=== PATIENT | male | born 1955 | race Caucasian/White ===

== ENCOUNTER 2019-02-23 14:26 | Outpatient (CLI) | payer MEDICARE, MEDICAID, SELFPAY ==
--- NOTE | 2019-02-23 14:35 | XRR_ITS ---
PROCEDURE INFORMATION: Exam: XR Abdomen, 1 View Exam date and time: 02/23/2019 3:46 PM Age: 63 years old Clinical indication: Condition or disease; Other: Calcium urolithiasis; Prior surgery; Surgery date: 6+ months; Surgery type: Kidney stone, gallbladder TECHNIQUE: Imaging protocol: XR of the abdomen. Views: Frontal supine view of the abdomen. 1 View. COMPARISON: CR XR KUB [id number] 02/23/2018 12:54 PM FINDINGS: Gastrointestinal tract: Normal. No bowel dilation. Status post cholecystectomy Faint densities are present in the projection of the proximal transverse colon which may represent material within the bowel. Bones/joints: Unremarkable. Negative for urinary tract stones
== END 2019-02-23 14:27 | disposition home or self-care (01) ==
PROVIDERS: Family Provider Physician Assistant; PCP Physician Assistant; Visit Provider Urology
DX: Z87.442 Personal history of urinary calculi (principal)
CPT/HCPCS: 74018; 81001

== ENCOUNTER → 2019-04-05 10:40 | Outpatient (BNVA) | payer MEDICARE, MEDICAID, SELFPAY | PROVIDERS: Family Provider Physician Assistant; PCP Physician Assistant; Visit Provider Podiatrist Foot & Ankle Surgery | DX: E11.43 Type 2 diabetes mellitus with diabetic autonomic (poly)neuropathy (principal); M79.672 Pain in left foot; M77.32 Calcaneal spur, left foot; L60.3 Nail dystrophy; Z89.421 Acquired absence of other right toe(s); S92.222D Displaced fracture of lateral cuneiform of left foot, subsequent encounter for fracture with routine healing; X58.XXXD Exposure to other specified factors, subsequent encounter | CPT/HCPCS: 73630; L1902 ==

== ENCOUNTER 2019-04-05 14:28 | Outpatient (CLI) | payer MEDICARE, MEDICAID, SELFPAY | END 2019-04-05 14:29 | disposition home or self-care (01) | LOC: SPT 14:28 | PROVIDERS: Family Provider Physician Assistant; PCP Physician Assistant; Visit Provider Podiatrist Foot & Ankle Surgery | DX: S92.222D Displaced fracture of lateral cuneiform of left foot, subsequent encounter for fracture with routine healing (principal); X58.XXXD Exposure to other specified factors, subsequent encounter | CPT/HCPCS: L1902 ==

== ENCOUNTER → 2019-06-08 12:01 | Outpatient (BNVA) | payer MEDICARE, MEDICAID, SELFPAY | PROVIDERS: Family Provider Physician Assistant; PCP Physician Assistant; Visit Provider Podiatrist Foot & Ankle Surgery | DX: M79.672 Pain in left foot (principal); M79.671 Pain in right foot; Z46.89 Encounter for fitting and adjustment of other specified devices; S92.902G Unspecified fracture of left foot, subsequent encounter for fracture with delayed healing; X58.XXXD Exposure to other specified factors, subsequent encounter | CPT/HCPCS: 73630; L4361 ==

== ENCOUNTER 2019-06-08 12:48 | Outpatient (CLI) | payer MEDICARE, MEDICAID, SELFPAY | END 2019-06-08 12:49 | disposition home or self-care (01) | LOC: SPT 12:49 | PROVIDERS: Family Provider Physician Assistant; PCP Physician Assistant; Visit Provider Podiatrist Foot & Ankle Surgery | DX: Z46.89 Encounter for fitting and adjustment of other specified devices (principal); S92.902G Unspecified fracture of left foot, subsequent encounter for fracture with delayed healing; X58.XXXD Exposure to other specified factors, subsequent encounter | CPT/HCPCS: L4361 ==

== ENCOUNTER 2019-06-09 09:38 | Outpatient (CLI) | payer MEDICARE, MEDICAID, SELFPAY ==
--- NOTE | 2019-06-09 10:00 | IR_ITS ---
WS: [id number] CERVICAL MYELOGRAM HISTORY: Neck pain COMPARISON: Cervical spine radiographs 11/15/2018 FLUOROSCOPY TIME: 1.2 minutes. Procedure, risks and complications were explained to the patient. Risks including bleeding, infection , headaches, allergic reaction and seizures. Consent has been obtained. With the patient in prone position the skin over the lumbar region is cleansed with ChloraPrep and an esthetized with lidocaine. 22-gauge spinal needle is inserted into the thecal sac at the appropriate level determined by fluoroscopy. Omnipaque 300; 12 ml is injected slowly under fluoroscopy with no co mplications. Needle bevel is perpendicular to the longitudinal fibers of the dura. Stylet is reinsert ed prior to removal of the needle. Patient tolerated the procedure well. Patient will proceed to CT f or further evaluation. Uncomplicated injection into the lumbar region. Using gravity the contrast is placed within the cervi jorge spine. Cervical alignment is normal with small endplate osteophytes and disc space narrowing. Mil d disc space narrowing at C5-6 and C6-7. No significant instability. No fractures. IR/[place] cervical [id number] IMPRESSION: 1. Uncomplicated cervical myelogram. 2. Please see CT report to follow. 3. Degenerative spondylitic changes most significant at C5-6 and C6-7. No inst ability.
--- NOTE | 2019-06-09 11:30 | CT_ITS ---
WS: [id number] CT CERVICAL MYELOGRAM HISTORY: Cervical disc disease Technique: All CT scans at [facility] use at least one of these dose optimization techniq ues: automated exposure control; mA and/or kV adjustment per patient size (includes targeted exams wh ere dose is matched to clinical indication); or iterative reconstruction. DLP: 760.56 mGy.cm COMPARISON: 11/15/2018 Good opacification of thecal sac with contrast. Normal cervical alignment. Mild disc space narrowing and desiccation at C5-6 and C6-7 with endplate o steophytes. Osteophytes encroach upon the ventral thecal sac. C1-C2: Normal. C2-C3: Central osteophyte without stenosis. C3-C4: Normal. C4-C5: Mild disc bulging and osteophytes. Small erosion within the LEFT facet joint. C5-C6: Moderate annular disc bulging and osteophytic ridging. Focal posterior osteophyte measures 3 m m and encroaches upon the ventral thecal sac with displacement. Mild central and RIGHT foraminal sten osis. C6-C7: Diffuse osteophytic ridging with mild central and RIGHT foraminal stenosis. Paravertebral soft tissues are normal. Note: Patient was experiencing double vision after the myelogram. After discussing symptoms with Carolina Mireles the patient was taken to the emergency room for evaluation. I discussed patient's symptoms wi th Dr. Pires at the time. Patient's mother has been made aware that he was taken to the emergency room. CT/CT cervical spine w con [id number] IMPRESSION: 1. Moderate degenerative disc disease at C5-6 and C6-7 with osteophytosis. 2. Mild central and RIGHT foraminal stenosis at C5-6 and C6-7 predominantly du e to osteophytes.
[2019-06-09] MEDS: iohexol 300 mg/mL 50 mL Btl INTRATHECA (14:03)
== END 2019-06-09 09:39 | disposition home or self-care (01) ==
LOC: RADWPI 10:45 → RAD 10:47
PROVIDERS: Family Provider Physician Assistant; PCP Physician Assistant; Visit Provider Licensed Practical Nurse
DX: M50.322 Other cervical disc degeneration at C5-C6 level (principal); M48.02 Spinal stenosis, cervical region; M25.78 Osteophyte, vertebrae; H53.2 Diplopia
CPT/HCPCS: 62302; 72040; 72126; 85610; 85730; Q9967

== ENCOUNTER 2019-06-09 12:50 | Emergency (ER) | payer MEDICARE, MEDICAID, SELFPAY ==
[2019-06-09 12:55] VITALS: BP 155/93; PULSE 69; RESP 18; TEMP 36.4; O2SAT 96; BMI 37.1
--- NOTE | 2019-06-09 13:03 | ED_ITS ---
HPI - Eye Problem General: Chief complaint: Eye Problems Stated complaint: DOUBLE VISION POST PROCEDURE Time Seen by Provider: 06/09/19 13:03 History of Present Illness: HPI Narrative: 63 yo male present with complaining of eye problems. Pt had a CT myelogram for chronic neck pain. He has a history of seizures so they had it done today here in the hospital rather than hand imaging center. After the procedure he was complaining of having double vision he was also noted to have elevated blood pressure the double vision is new he had no other associated symptoms he does have known elevated blood pressure but usually does not have this kind of symptoms. He has some chronic shortness of breath which he has had for years has not had any chest pain denies any fever sweats or chills MD chief complaint: vision change Onset (ago): hour(s) Onset description: sudden Duration: improved Location: both eyes Eye Symptoms: other (Double vision) Place: other (at radiology department of the hospital) Mechanism: other (CT myelogram) Severity: moderate Associated symptoms: Denies fever(s), nausea or vomiting Review of Systems Const: Denies: fever, chills, body aches, change in appetite, fatigue or malaise ENMT: Denies: throat pain, ear pain, nasal discharge or nasal congestion Card: Denies: chest pain, edema, shortness of breath on exertion or shortness of breath when lying down Resp: Denies: shortness of breath, productive cough or non-productive cough GI: Denies: abdominal pain, nausea, vomiting, vomiting blood, coffee grounds in vomit, diarrhea, constipation, bloating, blood in stool or black tarry stool : Denies: flank pain, painful urination, urinary frequency or urinary urgency Skin/Breast: Denies: rash or itching [facility] [place] [facility] PFSH: Social History Smoking and tobacco status: never smoked Alcohol intake: never Household members: family Marital status: Single Current occupational status: disabled History of recent travel: No Physical Exam Const: COMMON NORMALS: no apparent distress GENERAL APPEARANCE: cooperative and comfortable ORIENTATION/CONSCIOUSNESS: Yes awake, Yes oriented to person, Yes oriented to place and Yes oriented to time HENMT: COMMON NORMALS: normocephalic, head/scalp atraumatic, hearing grossly normal bilaterally, external ears normal, EAC's normal, TM's normal bilaterally, nasal mucous membranes and turbinates normal, moist oral mucous membranes and oropharynx normal HEAD & SCALP: normocephalic and atraumatic NOSE: nasal mucous membranes and turbinates normal EXTERNAL EAR: Yes external ears normal EXTERNAL AUDITORY CANAL: EAC's normal TYMPANIC MEMBRANE: TM's normal bilaterally Eye: COMMON NORMALS: PERRL, EOMs intact bilaterally, conjunctivae normal and no scleral icterus CONJUNCTIVA: Yes conjunctivae normal PUPIL: Yes PERRL Neck/C-Spine: COMMON NORMALS: full ROM, no lymphadenopathy, supple and no JVD Lymph: LYMPHATIC: no lymphadenopathy noted and no lymphedema noted Resp: COMMON NORMALS: normal respiratory effort, no retractions, no use of accessory muscles and clear to auscultation bilaterally AUSCULTATION: clear to auscultation bilaterally Cardio: COMMON NORMALS: no JVD, regular rate, regular rhythm and no murmurs RATE: regular rate RHYTHM: regular rhythm GI: COMMON NORMALS: soft to palpation and no hepatosplenomegaly AUSCULTATION: Yes normoactive bowel sounds PALPATION: Yes soft, No tender, No guarding and Yes no hepatosplenomegaly Extremity: COMMON NORMALS: normal to inspection, normal capillary refill, no clubbing, cyanosis or edema, no calf tenderness and no pedal edema Neuro: SENSORIUM/ORIENTATION: Yes oriented to person, Yes oriented to place and Yes oriented to time Skin: COMMON NORMALS: no rashes or lesions noted GENERAL SKIN EXAM: no rashes or lesions noted Course Vital Signs: Vital signs: Vital Signs Temperature 97.6 F 06/09/19 12:55 Pulse Rate 56 L 06/09/19 14:50 Respiratory Rate 12 06/09/19 14:50 Blood Pressure 146/89 06/09/19 14:50 Pulse Oximetry 95 06/09/19 14:50 MDM - Eye Problem MDM Narrative: Medical decision making narrative: Reviewed CT findings with Dr. Pal. Symptoms patient initially discussed with Dr. Ramirez of completely resolved by the time he arrived here. Is likely due to irritation from the Omnipaque dye used for the CT myelogram. His blood pressure was significantly elevated will add 10 mg of lisinopril daily and have him follow-up with his primary care doctor within the week return if has problems. Lab Data: Labs: Lab Results 06/09/19 06/09/19 Range/Units 13:35 13:35 WBC 6.7 (4.0-10.0) 10^3/ uL RBC 5.65 H (4.1-5.3) 10^6/u L Hgb 16.9 H (11.7-16.6) g/dL Hct 50.6 (42.0-52.0) % MCV 89.6 (80-94) fL MCH 29.9 (28.0-34.0) pg MCHC 33.4 (30.0-36.0) g/dL RDW 12.7 (12.1-15.1) % Plt Count 204 (130-400) 10^3/c mm MPV 9.5 (7.4-10.4) fL Neut % (Auto) 55.4 % Lymph % (Auto) 31.3 % [place] % (Auto) 8.7 % Eos % (Auto) 3.7 % Baso % (Auto) 0.6 % Neut # (Auto) 3.7 (1.8-7.7) 10^3/u L Lymph # (Auto) 2.1 (0.8-4.8) 10^3/u L [place] # (Auto) 0.6 (0.2-0.9) 10^3/u L Eos # (Auto) 0.3 (0.0-0.8) 10^3/u L Baso # (Auto) 0.0 (0.0-0.1) 10^3/u L Nucleated RBC % (a uto) 0 % Nucleated RBCs # 0.0 /100WBC Sodium 138 (136-145) mmol/L Potassium 4.3 (3.5-5.1) mmol/L Chloride 100 (98-107) mmol/L Carbon Dioxide 27 (22-29) mmol/L Anion Gap 15.3 (5-19) BUN 12 (8-23) mg/dL Creatinine 0.9 (0.7-1.2) mg/dL GFR Calculation 85.8 L (90-130) mL/min Glucose 138 H (65-115) mg/dL Calculated Osmolal ity 284 L (285-295) mOsm/k g Calcium 9.7 (8.5-10.5) mg/dL Total Bilirubin 0.6 (0.15-1.2) mg/dL AST 22 (0-40) U/L ALT 17 (0-41) U/L Alkaline Phosphata se 82 (40-130) IU/L Total Protein 8.3 (6.6-8.7) g/dL Albumin 4.3 (3.5-5.2) g/dL Globulin 4.0 (1.3-4.6) g/dL Discharge Plan Discharge Patient Disposition: Home, Self-Care Clinical Impression: Hypertension, Medication side effect Condition: Stable Prescriptions: New lisinopril 10 mg tablet 10 mg PO DAILY Qty: 20 RF: 0 No Action vitamin B complex [B Complex-Vitamin B12] Tablet 1 tab PO DAILY RF: 0 levetiracetam 750 mg tablet 750 mg PO DAILY RF: 0 metformin 500 mg tablet 500 mg PO DAILY RF: 0 All Day Allergy (cetirizine) 10 mg capsule 10 mg PO DAILY RF: 0 gabapentin 100 mg capsule 100 mg PO TID RF: 0 nystatin-triamcinolone 100,000-0.1 unit/gram-% ointment 1 applic TOPICAL BID Qty: 15 RF: 0 (DME) supinator Qty: 1 RF: 0 (DME) Cam boot Qty: 1 RF: 0 alfuzosin 10 mg tablet extended release 24 hr 10 mg PO DAILY Qty: 30 RF: 12 Discharge Orders: Discharge Order (Routine); Ordered 06/09/19 Ordered By: Aleksey Pires Referrals: Erendira Delong PA [Primary Care Provider] - Discharge Diet: Usual diet Discharge Activity: Increase activity as tolerated Activity Restrictions/Additional Instructions: Follow-up with your primary care provider to recheck your blood pressure within the week Discharge Date/Time: 06/09/19 14:51 Coding Level of Care Code ED Acid Etch Operator for Chg Fwd Exam Comprehensive
[2019-06-09 13:09] VITALS: BP 147/88; PULSE 60; RESP 14; O2SAT 96
--- NOTE | 2019-06-09 13:16 | CT_ITS ---
WS: [id number] CT HEAD TECHNIQUE: Noncontrast CT of the head obtained from the skullbase to the vertex. CLINICAL INFORMATION: dbl vision COMPARISON: None. DLP: 809.[address] scans at [facility] use at least one of these dose optimization techniques: automat ed exposure control; mA and/or kV adjustment per patient size (includes targeted exams where dose is matched to clinical indication); or iterative reconstruction. FINDINGS: CT cervical myelogram from earlier today. Residual contrast within the basilar cisterns and overlying the cerebral hemispheres. No significant mass effect or midline shift. No hydrocephalus. Moderate pa renchymal volume loss. Mild small vessel changes. Paranasal sinuses and mastoid air cells are well ae rated. Notified Aleksey Pires DO at 06/09/2019 2:[address]/CT head wo con* [id number] IMPRESSION: 1. Intracranial contrast from recent cervical myelogram. 2. No significant mass effect or midline shift. 3. No hydrocephalus. 4. Moderate parenchymal volume loss.
[2019-06-09 13:40] LABS: Basophils % 0.6 %; Eosinophils # 0.3 10^3/uL (0.0-0.8); Eosinophils % 3.7 %; Hematocrit 50.6 % (42.0-52.0); Hemoglobin 16.9 g/dL (11.7-16.6); Lymphocytes # 2.1 10^3/uL (0.8-4.8); Lymphocytes % 31.3 %; Mean Corpuscular HGB Conc 33.4 g/dL (30.0-36.0); Mean Corpuscular Hemoglobin 29.9 pg (28.0-34.0); Mean Corpuscular Volume 89.6 fL (80-94); Mean Platelet Volume 9.5 fL (7.4-10.4); Monocytes # 0.6 10^3/uL (0.2-0.9); Monocytes % 8.7 %; Neutrophils # 3.7 10^3/uL (1.8-7.7); Neutrophils % 55.4 %; Nucleated Red Blood Cells % 0 %; Platelet Count 204 10^3/cmm (130-400); Red Blood Count 5.65 10^6/uL (4.1-5.3); Red Cell Distribution Width 12.7 % (12.1-15.1); White Blood Count 6.7 10^3/uL (4.0-10.0)
[2019-06-09 13:57] LABS: Alanine Aminotransferase 17 U/L (0-41); Albumin Level 4.3 g/dL (3.5-5.2); Alkaline Phosphatase 82 IU/L (40-130); Anion Gap 15.3 (5-19); Aspartate Amino Transferase 22 U/L (0-40); Blood Urea Nitrogen 12 mg/dL (8-23); Calcium 9.7 mg/dL (8.5-10.5); Carbon Dioxide 27 mmol/L (22-29); Chloride 100 mmol/L (98-107); Creatinine Clr Calc Pharmacy 97.5435; Glomerular Filtration Rate 85.8 mL/min (90-130); Glucose 138 mg/dL (65-115); Osmolality Calculated 284 mOsm/kg (285-295); Potassium 4.3 mmol/L (3.5-5.1); Sodium 138 mmol/L (136-145); Total Bilirubin 0.6 mg/dL (0.15-1.2); Total Protein 8.3 g/dL (6.6-8.7)
[2019-06-09 14:50] VITALS: BP 146/89; PULSE 56; RESP 12; O2SAT 95
== END 2019-06-09 14:51 | disposition home or self-care (01) ==
PROVIDERS: Emergency Provider Family Medicine; Family Provider Physician Assistant; PCP Physician Assistant
DX: I15.8 Other secondary hypertension (principal); T50.905A Adverse effect of unspecified drugs, medicaments and biological substances, initial encounter
CPT/HCPCS: 12345; 36415; 70450; 80053; 85025; 99281; 99283

== ENCOUNTER → 2019-06-22 10:49 | Outpatient (BNVA) | payer MEDICARE, MEDICAID, SELFPAY | PROVIDERS: Family Provider Physician Assistant; PCP Physician Assistant; Visit Provider Podiatrist Foot & Ankle Surgery | DX: M79.673 Pain in unspecified foot (principal); S92.902G Unspecified fracture of left foot, subsequent encounter for fracture with delayed healing; M77.32 Calcaneal spur, left foot | CPT/HCPCS: 73630 ==

== ENCOUNTER 2019-06-22 13:41 | Outpatient (CLI) | payer MEDICARE, MEDICAID, SELFPAY | END 2019-06-22 13:42 | disposition home or self-care (01) | LOC: SPT 13:43 | PROVIDERS: Family Provider Physician Assistant; PCP Physician Assistant; Visit Provider Podiatrist Foot & Ankle Surgery | DX: Z46.89 Encounter for fitting and adjustment of other specified devices (principal); S92.902G Unspecified fracture of left foot, subsequent encounter for fracture with delayed healing; X58.XXXD Exposure to other specified factors, subsequent encounter; M79.673 Pain in unspecified foot; M77.32 Calcaneal spur, left foot | CPT/HCPCS: 73630; L3100 ==

== ENCOUNTER 2019-07-25 09:44 | Observation (INO) | payer MEDICARE, MEDICAID, SELFPAY ==
[2019-07-22 12:33] VITALS: BMI 37.9
--- NOTE | 2019-07-22 12:49 | ANES.PREANE2 ---
Pre-Anesthetic Assessment Pre-Anesthetic Assessment: Height/Weight: Height 1.68 m Weight 106.594 kg Preop Diagnosis: Intervertebral disc disorder with myelopathy, mid cervical region Proposed Procedure: Operation Date: 07/25/19 07:00 Proposed Procedures p Anterior Cervical Discectomy&Fusion 1Lev C5-C6 95795 M50.020(Not Applicable) - Mulugeta Hu MD Social: Social History: No alcohol and No tobacco Exam: Pre-Anes Outpt Exam: alert, oriented x 3, clear to auscultation bilaterally and regular rate & rhythm Airway: Submandibular: WNL Cervical ROM: Other (very limited) MP: 3 Dentition: Other (very poor dentation) History/ROS: No significant history except as noted Pulmonary: Pulmonary: MAK and Sleep apnea CV/HEM: CV/HEM: Arrythmia and HTN Comments: h/o endocarditis : : UTI Comments: stones Hepatic: Hepatic: None reported GI: GI: None reported Metabolic: Metabolic: DM and Morbid obesity Musc/skel: Musc/skel: Lower Back Pain, OA/DJD and Weakness (all over ) Neuropsych: Neuropsych: Neuropathy (all over) Anesthetic Plan: ASA status: 3 Anesthesia: Anesthesia Evaluation and General Risk of > 500 ml blood loss (7ml/kg in children): No PFSH Anesthesia PFSH: Medical History Calcium urolithiasis Cervical disc disorder with myelopathy of mid-cervical region Cervical stenosis of spine Gross hematuria History of amputation of toe History of kidney stones History of urethral stricture Urinary tract infection, site not specified Surgical History History of cholecystectomy Status post laser lithotripsy of ureteral calculus Status post esdras-rectal abscess repair, follow-up exam Family History Father , 34-[place] CAD (coronary artery disease) Family/Other Chronic kidney disease (CKD) Social History Smoking and tobacco status: never smoked Alcohol intake: never Household members: family Marital status: Single Current occupational status: disabled History of recent travel: No Data Anesthesia Cardiac Studies: No Data to Display
[2019-07-25] VITALS (12 sets, daily range): BP systolic 143–175; BP diastolic 78–93; PULSE 62–88; RESP 16–20; TEMP 35.6–36.7; O2SAT 92–98
[2019-07-25] MEDS: sodium chloride 0.9% 1,000 ML 30 ML IV (06:44)
[2019-07-25 06:45] LABS: Glucose Point of Care 159 mg/dL (70-110)
--- NOTE | 2019-07-25 06:47 | W.PM.OPSUD ---
Surgery/Procedure H&P Update DATE OF PROCEDURE: July 25, 2019 DATE H&P PERFORMED: 07/18/19 H&P UPDATE INFORMATION: I have reviewed H&P completed within last 30 days and H&P to be scanned into chart PREOP DIAGNOSIS: Intervertebral disc disorder with myelopathy, mid cervical region PRIMARY INDICATION FOR PROCEDURE: Pain PLANNED PROCEDURE: Operation Date: 07/25/19 07:00 Proposed Procedures Anterior Cervical Discectomy/Fusion/Fixation, C5-C6 68204 M50.020(Not Applicable) - Mulugeta Hu MD
--- NOTE | 2019-07-25 06:56 | ANES.PREANE2 ---
Pre-Anesthetic Assessment Pre-Anesthetic Assessment: Height/Weight: Height 1.68 m Weight 106.594 kg Temp Pulse Resp BP Pulse Ox 97.6 F 62 18 144/93 95 07/25/19 06:23 07/25/19 06:23 07/25/19 06:23 07/25/19 06:23 07/25/19 06:23 Preop Diagnosis: Intervertebral disc disorder with myelopathy, mid cervical region Proposed Procedure: Operation Date: 07/25/19 07:00 Proposed Procedures p Anterior Cervical Discectomy&Fusion 1Lev C5-C6 80353 M50.020(Not Applicable) - Mulugeta Hu MD Was Beta Marcelina taken within 24 hours: N/A Last intake: Intake Last Liquid Date 07/24/19 Last Liquid Time 22:00 Last Solid Date 07/24/19 Last Solid Time 22:00 Social: Social History: Alcohol and No tobacco Exam: Pre-Anes Outpt Exam: alert, oriented x 3, clear to auscultation bilaterally and regular rate & rhythm (Regular rate with occasional irregularity) Airway: Submandibular: Other (Limited Thyromental Distance; obese neck; pain with full extension) Cervical ROM: Other MP: 3 Additional comments: Profund dental disease throughout; severe decay and periodontal disease Pulmonary: Pulmonary: None reported CV/HEM: CV/HEM: None reported : : None reported Hepatic: Hepatic: None reported GI: GI: None reported Metabolic: Metabolic: DM Musc/skel: Musc/skel: Lower Back Pain and Weakness Neuropsych: Neuropsych: GARCIA and Neuropathy Comments: Cervical radiculopathy with sensory and motor component left>right Anesthetic Plan: ASA status: 3 Anesthesia: General Risk of > 500 ml blood loss (7ml/kg in children): Yes, adequate IV access and fluids planned Meds/Allergies Current Medications: Current Medications Generic Name Dose Route Start Last Admin Trade Name Freq PRN Reason Stop Dose Admin Sodium Chloride 1,000 mls @ 30 ml s/hr 07/25/19 06:30 07/25/19 06:44 Sodium Chloride 0.9% IV 07/26/19 06:29 30 mls/hr .Q24H KARO Administration PFSH Anesthesia PFSH: Medical History Calcium urolithiasis Cervical disc disorder with myelopathy of mid-cervical region Cervical stenosis of spine Gross hematuria History of amputation of toe History of kidney stones History of urethral stricture Urinary tract infection, site not specified Surgical History History of cholecystectomy Status post laser lithotripsy of ureteral calculus Status post esdras-rectal abscess repair, follow-up exam Family History Father , 34-CT CAD (coronary artery disease) Family/Other Chronic kidney disease (CKD) Social History Smoking and tobacco status: never smoked Alcohol intake: never Household members: family Marital status: Single Current occupational status: disabled History of recent travel: No Data Anesthesia Other Labs: Laboratory Results - last 48 hr 07/25/19 06:43 POC Glucose 159 Cardiac Studies: No Data to Display
--- NOTE | 2019-07-25 07:03 | P.OP_ITS ---
Brief Operative Note: Date of procedure: 07/25/19 Pre-op diagnosis: Intervertebral disc disorder with myelopathy, midcervical Procedure Done: C5- C6 ACDFF Surgeon: Mulugeta Hu Estimated blood loss (mL): 50 Complications: None Post-op Plan: PACU, then cano Condition: stable Disposition: PACU Coding Level of Care Code Acute Assembly Line Driver for Ebony Greenwood
--- NOTE | 2019-07-25 07:11 | XR_ITS ---
WS: [id number] INTRAOPERATIVE LATERAL CERVICAL SPINE HISTORY: Cervical surgery. COMPARISON: 06/09/2019 Lateral radiograph obtained in the OR with a metallic marker indicating the anterior C4-5 disc space. Patient is intubated. XR/XR cervical spine 1ort [id number] IMPRESSION: Intraoperative planning marker at anterior cervical soft tissues directed at C4 -5.
[2019-07-25] MEDS: thrombin 5,000 unit SDV 5000 UNIT XX (07:46)
--- NOTE | 2019-07-25 07:54 | XR_ITS ---
WS: [id number] INTRAOPERATIVE LATERAL CERVICAL SPINE HISTORY: SURGERY COMPARISON: Study earlier the same day. Lateral radiograph obtained in the OR with a metallic marker indicating the anterior C5-6 disc space. Soft tissue spacers are now present. Marker is in the disc anteriorly. Patient is intubated. XR/XR cervical spine 1ort [id number] IMPRESSION: Intraoperative planning marker at anterior C5-6 disc level.
--- NOTE | 2019-07-25 08:11 | SUR.OPER ---
Family Notified Of Patient's Status Via Phone.
--- NOTE | 2019-07-25 09:42 | XR_ITS ---
WS: [id number] CERVICAL SPINE 2 VIEWS HISTORY: AP/LAT Post op Fusion COMPARISON: None available. Limited evaluation of the anterior cervical fusion with interbody spacer at C5-6. Mild narrowing of the disc spaces. Postoperative changes in the soft tissues anteriorly. XR/XR cervical spine 3V* [id number] IMPRESSION: Status post anterior cervical fusion with interbody spacer at C5-C6. Limited ev aluation due to patient's body habitus. No apparent complications.
--- NOTE | 2019-07-25 10:12 | ANE.PACU2 ---
Inpatient post-anesthesia follow up: Airway intact: Yes Vital signs: Temperature 97.7 F Pulse Rate 88 Respiratory Rate 16 Blood Pressure 157/92 Pulse Oximetry 92 Oxygen Delivery Me thod Simple Mask Oxygen Flow Rate 8 Fraction of Inspir ed Oxygen Hydration adequate: Yes Nausea and vomiting: No Pain level: 4 Mental status: Baseline Additional Comments: Stable for discharge from PACU
--- NOTE | 2019-07-25 10:37 | PC.NURSE ---
patient arrived on unit
[2019-07-25] MEDS: ketorolac 30 mg/mL INJ IVP (11:05)
[2019-07-25] MEDS: sodium chlor 0.9% + KCl 20 mEq 20 MEQ/1,000 ML BAG 75 MEQ IV (11:05)
--- NOTE | 2019-07-25 11:25 | SUR.PHASEI ---
1030 PT TO FLOOR PER CART PT ALERT TALKATIVE MOVES ALL EXT TO COMMAND, PT UP AND WALKED 2 STEPS TO BED CAREFUL NOT TO TWIST NECK, NECK DRESSING D/I WITH ONE TINY SPOT NOTED ON ADMIT TO PACU, NO SWELLING NOTED SOFT C COLLAR IN PLACE, NURSE DOUGLAS RN AT BEDSIDE PT NECK AND DRESSING SHOWN AT HANDOFF AT BEDSIDE. BP 165/86, HRE 86, RESP 18. SATS ON 3LNC 96%
[2019-07-25] MEDS: levofloxacin-dextrose 5 % 750 MG/150 ML PREMIX 100 MG IV (13:30)
--- NOTE | 2019-07-25 13:40 | P.OP_ITS ---
Operative Report Date of procedure: July 25, 2019 Pre-op Diagnosis: Intervertebral disc disorder with myelopathy, mid cervical region Post-op diagnosis: same (with instability of joint) Procedure Done: C5-C6 anterior cervical discectomy with osteophytectomy. C5-C6 anterior cervical plate-screw fixation. C5-C6 placement of intervertebral prosthetic device. C5-C6 anterior cervical fusion utilizing morselized autograft obtained from the osteophytectomy portions of the procedure. Implants: Synthes Vectra plate/screw system. ACIS ProTi Spacer. Specimens removed/disposition: C5-C6 disc. Pathology: Disc fragments Surgeon: Mulugeta Hu Estimated blood loss (mL): 50 IV fluids (mL): 1,000 Complications: None. Condition: stable Disposition: PACU Brief History: The patient is a 63-year-old male with symptomatic, radiographically confirmed cervical disc/joint disease and associated neural impingement. Imaging studies demonstrated dominant abnormalities at C5-C6, with asymmetry toward the right. Conservative treatment measures had not provided adequate lasting symptom relief. After review of the diagnostic and treatment options with the risks/potential benefits/rationale for each, the patient requested to proceed with surgical decompression/fusion/fixation at the C5-C6 le osvaldo. Procedure: After routine preoperative evaluation and informed consent were obtained, the patient was taken to the Operating Room and positioned supine on the operating table. He was placed under general endotracheal anesthesia by Anesthesia personnel. He was fit in the [place]Wells tongs for the application of in-line cervical traction. The anterolateral neck on the left was prepared with hair clippers, and a proposed transverse skin incision was marked with a sterile skin marker. Regional anatomy and intraoperative radiography were utilized for localization purposes. The area was scrubbed with Betadine and prepped with DuraPrep. Sterile towels and drapes were applied, and an [place] surgical barrier was placed. The proposed incision site was infiltrated with 1% Xylocaine with Epinephrine. A skin incision was made and carried down into the subcutaneous tissues. The platysma was identified and divided in the direction of its fibers. A plane was dissected just medial to the carotid sheath and lateral to the midline esophagus and trachea. The prevertebral soft tissues were bluntly dissected free of the anterior margin of the cervical spine. Longus coli muscles were freed from their medial attachments, and deep self-retaining retractors were placed. Intraoperative radiography verified the desired surgical level. The C5-C6 interspace was then incised with a #11 blade. Discectomy was accomplished utilizing various curettes and pituitary rongeurs. Anterior marginal osteophytes were resected with Lempert and Kerrison rongeurs. Cartilaginous endplates were stripped free with curettes. Posterior marginal osteophytes were resected with the thin-foot plate Kerrison rongeurs. The medial aspects of the neural foramina were enlarged in a similar manner. Posterior longitudinal ligament was divided and resected as necessary to further the decompression. Prominent marginal osteophytes were noted on the right > left. Osteophyte resection was pursued utilizing the Kerrison rongeurs and the Midas Alessio high-speed drill with jonny tool. At the completion of the decompression, no residual central canal or neural foraminal impingement was identified upon probing with the right angle nerve hook. The drill and sized rasps were utilized for endplate preparation. The disc space was sized. A 9mm ACIS ProTi lordotic/medium Spacer was chosen. The Spacer was packed with morselized autograft obtained from the osteophytectomy portions of the procedure. The Spacer was placed within the C5- C6 interspace while in-line cervical traction was applied via the Soto-Wells tongs. Spacer placement was facilitated by use of the mallet and impaction tools. Once the Spacer was in good position, a Synthes Vectra plate of the desired size was chosen. The plate was secured to the C5 and C6 vertebral bodies with bilateral 4 mm x 14 mm self-drilling screws. Final screw tightening was performed, and the screws were noted to engage the locking mechanisms within the plate at each site. The construct was inspected and found to be in good position and secure. The wound was copiously irrigated with sterile saline and antibiotic irrigation. Hemostasis was ensured with the bipolar electrocautery. Wound closure was performed in multiple layers with 2-0 Vicryl Plus simple interrupted closure of the platysma and deep dermis as separate layers. Final skin closure was performed with 4-0 Vicryl Plus in a running subcuticular pattern. Steri- Strips were applied, and a sterile dressing was placed. The patient was released from the Soto-Wells tongs and fit in a [place] collar. He was extubated without incident. He was transferred onto the Recovery Room cart in the supine position. The patient tolerated the procedure well. All sponge, needle, and instrument counts were correct at the completion of the procedure.
--- NOTE | 2019-07-25 14:35 | PC.NURSE ---
patient given discharge instructions and verbalized understanding. patient stated he has less chip washer in left arm. health science writer notified Dr Hu of chip washer concern. waiting advisory application developer back from Dr Hu before discharge.
--- NOTE | 2019-07-25 14:47 | PC.NURSE ---
vd call back from Dr Hu's nurse. Egg Grader explained that patient said he couldn't pickup a carton of milk with right hand but typewriter tester and charge nurse seen patient curing pickling packer a glass of water with right hand. Dr Hu ok with patient being discharge home today. Egg Grader let patient know. and patient requested typewriter tester call his sister for ride home. typewriter tester called patient's sister.
--- NOTE | 2019-07-25 15:05 | PC.NURSE ---
Levaquin administered at 1330, bag didn't scan and write was not aware. After administration of Levaquin comic writer discontinued IV.
[2019-07-25] MEDS: gabapentin 100 mg Capsule PO (15:07)
--- NOTE | 2019-07-25 15:45 | P.DS_ITS ---
Discharge Providers Date of Admission: 07/25/19 09:44 Date of Discharge: July 25, 2019 Attending Provider at Admission: Mulugeta Hu MD Attending Provider at Discharge: Mulugeta Hu MD Primary Care Provider: Erendira Delong Diagnoses at Discharge Discharge Diagnosis (1) Cervical disc disorder with myelopathy of mid-cervical region: Status: Chronic (2) Instability of joint: Status: Acute (3) Status post cervical spinal fusion: Status: Acute Reason for Visit Reason for Visit: cervical disc disorder Brief History: The patient is a 63-year-old male with symptomatic, radiographically confirmed cervical disc/joint disease and associated neural impingement. Imaging studies demonstrated dominant abnormalities at C5-C6, with asymmetry toward the right. Conservative treatment measures had not provided adequate lasting symptom relief. After review of the diagnostic and treatment options with the risks/potential benefits/rationale for each, the patient requested to proceed with surgical decompression/fusion/fixation at the C5-C6 level. Hospital Course Hospital Course: The patient underwent a C5-C6 ACDFF on 07/25/2019. He tolerated the procedure well. He completed preoperative and postoperative intravenous antibiotic doses, and the physical therapy postoperative spine protocol. He was ambulatory, voiding, and tolerating a diabetic diet prior to discharge home on the afternoon of the date of surgery. Physical Exam Const: COMMON NORMALS: no acute distress GENERAL APPEARANCE: cooperative and comfortable Neck/C-Spine: COMMON NORMALS: supple GENERAL: Yes trachea midline and No anterior neck swelling Resp: COMMON NORMALS: normal respiratory effort EFFORT & INSPECTION: Yes able to speak in complete sentences and No tachypneic Extremity: COMMON NORMALS: no clubbing, cyanosis or edema Neuro: COMMON NORMALS: moves all extremities SPEECH: speech normal Psych: COMMON NORMALS: mental status grossly normal and speech normal APPEARANCE: Yes grossly normal ATTITUDE: Yes calm and Yes engaged ACTIVITY/MOTOR BEHAVIOR: Yes appropriate eye contact SPEECH: Yes normal speech MOOD & AFFECT: Yes euthymic mood Skin: WOUNDS: Yes surgical site (Left anterolateral neck surgical site dressing clean/dry/intact.) Discharge Data Data Completed and Pending: Completed Studies During Hospitalization Category Date Time Status XR cervical spine 1 view portable [ XR cervical spine Exams 07/25/19 07:54 Completed 1Vport [id number]] Rou los XR cervical spine 1Vport 23901 Rout ine Exams 07/25/19 07:11 Completed XR cervical spine 3V* [id number] Routine Exams 07/25/19 09:42 Completed Pathology: Surgic al [PTH] Routine Pth 07/25/19 09:58 Completed Imaging^: Other Xray: Radiologist's impression: Status post anterior cervical fusion with interbody spacer at C5-C6. Limited evaluation due to patient's body habitus. No apparent complications. Procedures Performed: C5-C6 anterior cervical discectomy/fusion/fixation (Synthes Vectra plate-screw fixation system). Intravenous antibiotics. Physical therapy. Vitals: Last Vital Signs Temp 97.5 F L 07/25/19 16:00 Pulse 62 07/25/19 16:00 Resp 18 07/25/19 16:00 BP 150/80 07/25/19 16:00 Pulse Ox 98 07/25/19 16:00 Discharge Plan Discharge Patient Disposition: Home, Self-Care Condition: Stable Prescriptions: [place] 7.5-325 mg tablet 1 tab PO Q4H MDD 5 tabs PRN (Reason: pain) Qty: 30 RF: 0 Continued vitamin B complex [B Complex-Vitamin B12] Tablet 1 tab PO DAILY RF: 0 levetiracetam 750 mg tablet 750 mg PO DAILY RF: 0 metformin 500 mg tablet 500 mg PO DAILY RF: 0 All Day Allergy (cetirizine) 10 mg capsule 10 mg PO DAILY RF: 0 gabapentin 100 mg capsule 100 mg PO TID RF: 0 (DME) supinator Qty: 1 RF: 0 (DME) TOE ALIGNMENT SPLINT Qty: 1 RF: 0 (DME) Cam boot RF: 0 Discharge Orders: Discharge Order (Routine); Ordered 07/25/19 Ordered By: Mulugeta Hu Referrals: Mulugeta Hu MD [Physician] - 08/08/19 10:00 am (AP/lateral c-spine x-rays prior to visit.) Discharge Diet: Diabetic Discharge Activity: Limit activity as instructed and As per PT/OT instructions Patient Instructions: Hydrocodone/Acetaminophen (By mouth), Anterior Cervical Discectomy (DC), Surgical Site Infections (GEN) Activity Restrictions/Additional Instructions: Activity -Cervical fusion: Wear cervical collar 24 hours a day. Change as necessary for showering, shaving, or if it becomes soiled. -No lifting or reaching overhead. - No driving until office followup visit - No lifting/pushing/pulling over 10 pounds - Avoid twisting or bending - Walking is encouraged - Home exercise per physical therapist - You may engage in sexual intercourse at any time as long as it is comfortable for you - Check with your doctor before returning to work. Notify your doctor if you develop: - temperature of 101.5 degrees F. or higher - redness or swelling of the incision - Foul drainage - increasing pain - increasing numbness or tingling in the arms or legs - New or increasing problems with vision, balance, memory, speaking, nausea or vomiting Hygiene: - Showering is okay - No tub baths or soaking Other: Remove outer bandage 3 days after surgery. If you have paper strips, leave in place until they fall off on their own. If you have stitches, keep your incision dry until the stitches are removed. Your doctor's office is available to answer any questions from 7 AM to 5:00 PM, Thursday through at [phone]. After hours, go to the emergency room at [facility] or call 911 for assistance. Discharge Date/Time: 07/25/19 16:01 Discharge Attestations Time Spent in Discharge Care*: other (postop global) Quality Metrics Clinical Quality Measures During this hospital stay, did patient experience: None Coding Level of Care Code Acute [employer] Counter Associate for Ebony Greenwood Diagnoses Cervical disc disorder with myelopathy of mid-cervical region M50.020 Instability of joint M25.30 Status post cervical spinal fusion Z98.1 Comment Postop global
== END 2019-07-25 16:01 | disposition home or self-care (01) ==
LOC: MEDSURG 09:45
PROVIDERS: Admitting Provider Specialist; PCP Physician Assistant; Visit Provider Specialist
PROC: 0RB30ZZ Excision of Cervical Vertebral Disc, Open Approach (ICD-10-PCS; CPT 22551; principal; 2019-07-25 07:00)
DX: M50.022 Cervical disc disorder at C5-C6 level with myelopathy (principal); M25.30 Other instability, unspecified joint; I10 Essential (primary) hypertension; E66.01 Morbid (severe) obesity due to excess calories; Z68.37 Body mass index [BMI] 37.0-37.9, adult; E11.40 Type 2 diabetes mellitus with diabetic neuropathy, unspecified
CPT/HCPCS: 22551; 22853; 12345; 36416; 72020; 72040; 82962; 88304; 96375; 97161; 97760; C1713; G0378; J1100; J1885; J1956; J2001; J2405; J2704; J2710; J3010; J3370; J3490; J7030; J7050; L0172; L0174

== ENCOUNTER 2019-08-08 11:16 | Outpatient (CLI) | payer MEDICARE, MEDICAID, SELFPAY ==
--- NOTE | 2019-08-08 11:22 | XRR_ITS ---
PROCEDURE INFORMATION: Exam: XR Cervical Spine, 2 or 3 Views Exam date and time: 08/08/2019 11:35 AM Age: 63 years old Clinical indication: Condition or disease; Cervical region; Prior surgery; Surgery date: <1 month; Surgery type: Cervical spinal fusion 10 days ago; Additional info: S/P cervicla spinal fusion TECHNIQUE: Imaging protocol: XR of the cervical spine, 2 or 3 views. COMPARISON: No relevant prior studies available. FINDINGS: Vertebrae: Ventral fixation plate and screws noted at C5 and C6, with intervertebral spacer material. C7 is not well visualized. There is straightening of the normal cervical lordosis. There is no fracture or listhesis. Soft tissues: There is prevertebral soft tissue swelling at the level of the fusion hardware. There is a small focus of soft tissue air. XR/XR cervical spine 3V* [id number] IMPRESSION: Postoperative appearance reflecting fusion at C5 and C6. Persistent prevertebral soft tissue swelling. Continued follow-up is recommended as indicated.
== END 2019-08-08 11:17 | disposition home or self-care (01) ==
LOC: RAD 11:20
PROVIDERS: PCP Physician Assistant; Visit Provider Licensed Practical Nurse
DX: Z98.1 Arthrodesis status (principal); M43.22 Fusion of spine, cervical region
CPT/HCPCS: 72040

== ENCOUNTER 2019-08-25 07:09 | Outpatient (CLI) | payer MEDICARE, MEDICAID, SELFPAY ==
--- NOTE | 2019-08-25 07:30 | XRR_ITS ---
PROCEDURE INFORMATION: Exam: XR Abdomen, 1 View Exam date and time: 08/25/2019 7:25 AM Age: 63 years old Clinical indication: Condition or disease; Kidney or ureter condition; Calculus (stone) in kidney; Patient HX: Cannot urinate; . HX of kidney stone TECHNIQUE: Imaging protocol: XR of the abdomen. Views: Frontal supine view of the abdomen. 1 View. COMPARISON: CR XR KUB [id number] 02/23/2019 3:28 PM FINDINGS: Gastrointestinal tract: Copious stool, in a pattern of constipation. Mild small bowel dilatation. Organs: Obscuration of the renal fossa by bowel gas and stool. Intraperitoneal space: Surgical clips in the right upper quadrant. Vasculature: Subcentimeter pelvic calcifications, the majority of which are believed to be vascular in etiology. If urolithiasis is of clinical concern, CT may be of benefit for further evaluation. Bones/joints: Degenerative change . XR/XR KUB [id number] IMPRESSION: Copious stool, in a pattern of constipation.
== END 2019-08-25 07:10 | disposition home or self-care (01) ==
PROVIDERS: PCP Physician Assistant; Visit Provider Urology
DX: N20.0 Calculus of kidney (principal); K59.00 Constipation, unspecified
CPT/HCPCS: 74018; 80053; 81001

== ENCOUNTER 2019-09-06 11:03 | Outpatient (CLI) | payer MEDICARE, MEDICAID, SELFPAY ==
--- NOTE | 2019-09-06 11:09 | XR_ITS ---
WS: [id number] CERVICAL SPINE TECHNIQUE: 3 views of the cervical spine CLINICAL INFORMATION: s/p cervical spinal fusion FINDINGS: Straightening of the normal cervical lordosis. Anterior interbody cervical fusion C5-C6 unchanged. Mo derate spondylitic changes. XR/XR cervical spine 3V* [id number] IMPRESSION: Unremarkable ACDF with improved prevertebral soft tissue edema
== END 2019-09-06 11:04 | disposition home or self-care (01) ==
PROVIDERS: PCP Physician Assistant; Visit Provider Specialist
DX: Z98.1 Arthrodesis status (principal); R60.9 Edema, unspecified
CPT/HCPCS: 72040

== ENCOUNTER 2019-09-20 15:48 | Outpatient (CLI) | payer MEDICARE, MEDICAID, SELFPAY ==
--- NOTE | 2019-09-20 15:00 | CT_ITS ---
WS: [id number] CT CERVICAL SPINE TECHNIQUE: Noncontrast CT of the cervical spine with coronal and sagittal reformatted images. CLINICAL INFORMATION: s/p cervical spinal fusion COMPARISON: CT June 09, 2019 and DLP: 1728.[address] scans at [facility] use at least one of these dose optimization techniques: automat ed exposure control; mA and/or kV adjustment per patient size (includes targeted exams where dose is matched to clinical indication); or iterative reconstruction. FINDINGS: Straightening of the normal cervical lordosis. Mild cervical curve. Anterior cervical fusion C5-C6 wi th interbody fusion graft. No evidence of hardware loosening. Hardware is new from previous. C2-C3: Tiny central protrusion. Spinal canal and foramen are patent. Mild facet arthropathy. C3-C4: Tiny central protrusion. Mild facet arthropathy. Spinal canal and foramen are patent. C4-C5: Disc osteophyte complex with endplate ridging. Mild central canal stenosis. Mild facet arthrop athy. Mild right foraminal narrowing. Anterior cervical fusion. C5-C6: Moderate central canal stenosis. Moderate to severe right and mild left bony foraminal narrowi ng. C6-7: Disc osteophytic ridging. Moderate to severe right and mild left bony foraminal narrowing. Spin al canal is patent. C7-T1: Mild left and no significant right foraminal narrowing. Spinal canal is patent. Visualized posterior nasopharynx: Normal. Prevertebral soft tissues: Normal. CT/CT cervical spin wo con* [id number] IMPRESSION: 1. Postoperative changes anterior interbody cervical fusion C5-C6. Hardware ap pears in good position. Hardware is new from previous. 2. Mild central canal stenosis C3-C4 C4-C5 and C5-C6. 3. Moderate to severe bony foraminal narrowing worse at right C5-C6 and right C6-C7.
== END 2019-09-20 15:49 | disposition home or self-care (01) ==
LOC: RADWPI 15:53
PROVIDERS: PCP Physician Assistant; Visit Provider Specialist
DX: Z98.1 Arthrodesis status (principal); M43.22 Fusion of spine, cervical region; M48.02 Spinal stenosis, cervical region; M47.892 Other spondylosis, cervical region
CPT/HCPCS: 72125

== ENCOUNTER → 2019-11-07 15:27 | Outpatient (BNVA) | payer MEDICARE, MEDICAID, SELFPAY | PROVIDERS: PCP Physician Assistant; Visit Provider Specialist | DX: G40.109 Localization-related (focal) (partial) symptomatic epilepsy and epileptic syndromes with simple partial seizures, not intractable, without status epilepticus (principal); H91.90 Unspecified hearing loss, unspecified ear; F45.0 Somatization disorder; Z98.1 Arthrodesis status | CPT/HCPCS: 99214 ==

== ENCOUNTER 2020-01-02 10:40 | Outpatient (CLI) | payer MEDICARE, MEDICAID, SELFPAY ==
--- NOTE | 2020-01-02 10:50 | MR_ITS ---
WS: [id number] MRI BRAIN WITH HIGH-RESOLUTION IMAGING THROUGH THE INTERNAL AUDITORY CANALS WITHOUT AND WITH CONTRAST HISTORY: UNSPECIFIED SENSORINEURAL HEARING LOSS COMPARISON: MRI 02/24/2018 TECHNIQUE: Multiplanar, multisequence imaging is performed through the brain. Additional 3 mm imaging performed in multiple planes through the internal auditory canal. Postcontrast imaging with 17 ml's of Prohance. No acute intracranial hemorrhage, midline shift, edema or mass effect. Mild to moderate bilateral symmetric atrophy. There are a few scattered areas of T2 and FLAIR signal hyperintensities from chronic ischemic disease. Prior LEFT occipital infarct. Ventricles and extra-axial spaces are normal. No inferior displacement of cerebellar tonsils. Clivus and pituitary gland are normal. Internal and external auditory canals: Unremarkable. No abnormality is identified. Quality of this ex amination is somewhat limited due to the body habitus. Cranial nerves VII and VIII complexes: Unremarkable. No enhancement or mass. Cerebellopontine angles: Normal. Paranasal sinuses: Small mucous retention cyst in the floor the RIGHT maxillary sinus. Mastoid air cells: Normal. Calvarium and scalp: Normal. Visualized [place] of [place] and dural venous sinuses demonstrate no abnormality. MR/MR iac's wo/w con* [id number] IMPRESSION: 1. No abnormality noted at the cerebellopontine angles or along the internal a uditory canals. 2. Mild to moderate bilateral symmetric atrophy and prior LEFT occipital infar ct. 3. No enhancing masses.
== END 2020-01-02 10:41 | disposition home or self-care (01) ==
LOC: RADWPI 10:46
PROVIDERS: PCP Physician Assistant; Visit Provider Specialist
DX: H90.5 Unspecified sensorineural hearing loss (principal); G31.9 Degenerative disease of nervous system, unspecified
CPT/HCPCS: 70553; A9579

== ENCOUNTER → 2020-05-09 14:26 | Outpatient (BNVA) | payer MEDICARE, MEDICAID, SELFPAY | PROVIDERS: PCP Physician Assistant; Visit Provider Specialist | DX: G40.109 Localization-related (focal) (partial) symptomatic epilepsy and epileptic syndromes with simple partial seizures, not intractable, without status epilepticus (principal) | CPT/HCPCS: 99215 ==

== ENCOUNTER → 2020-05-21 09:07 | Outpatient (BNVA) | payer MEDICARE, MEDICAID, SELFPAY | PROVIDERS: PCP Physician Assistant; Visit Provider Urology | DX: N20.9 Urinary calculus, unspecified (principal); N40.1 Benign prostatic hyperplasia with lower urinary tract symptoms; K92.1 Melena; F45.0 Somatization disorder; Z87.442 Personal history of urinary calculi | CPT/HCPCS: 81003 ==

== ENCOUNTER → 2020-06-07 13:56 | Outpatient (BNVA) | payer MEDICARE, MEDICAID, SELFPAY | PROVIDERS: PCP Physician Assistant; Visit Provider Surgery | DX: K92.1 Melena (principal); Z20.822 Contact with and (suspected) exposure to COVID-19 | CPT/HCPCS: 87635 ==

== ENCOUNTER → 2020-06-12 07:45 | Day surgery (SDC) | payer MEDICARE, MEDICAID, SELFPAY ==
--- NOTE | 2020-04-17 12:00 | XRR_ITS ---
PROCEDURE INFORMATION: Exam: XR Abdomen Exam date and time: 04/17/2020 12:34 PM Age: 64 years old Clinical indication: Condition or disease; Kidney or ureter condition; Calculus (stone) in kidney; Additional info: HX of kidney stones TECHNIQUE: Imaging protocol: XR of the abdomen. Views: Frontal supine view of the abdomen. 1 View. COMPARISON: CR XR KUB [id number] 08/25/2019 7:18 AM FINDINGS: Gastrointestinal tract: Normal. No bowel dilation. Surgical clips seen in the right upper quadrant corresponding to cholecystectomy. Bones/joints: Negative for acute abnormality The examination is negative for visible radiodense urinary tract stones. The kidneys are partially obscured by colon contents XR/XR KUB [id number] IMPRESSION: 1. No acute GI abnormality. 2. Status post cholecystectomy. 3. Negative for urinary tract stones
== END ==
LOC: RAD 04-17 12:33 → OPS 07:54
PROVIDERS: PCP Physician Assistant; Visit Provider Urology
DX: K92.1 Melena (principal); N40.1 Benign prostatic hyperplasia with lower urinary tract symptoms; N13.8 Other obstructive and reflux uropathy; K57.30 Diverticulosis of large intestine without perforation or abscess without bleeding; K64.8 Other hemorrhoids
CPT/HCPCS: 74018; 81003; 87077; 87086; 87184

== ENCOUNTER 2020-06-12 08:22 | Day surgery (SDC) | payer MEDICARE, MEDICAID, SELFPAY ==
[2020-06-11 09:09] VITALS: BMI 34.9
--- NOTE | 2020-06-12 07:56 | P.ANESASSM_ITS ---
Pre-Anesthetic Assessment Pre-Anesthetic Assessment: Height/Weight: Height 1.7 m Weight 101.151 kg Preop Diagnosis: hemathochezia Proposed Procedure: Operation Date: 06/12/20 09:00 Proposed Procedures p Colonoscopy 60621 K92.1(Not Applicable) - Garrick Mrogan MD Familial anesthetic complications: None Last intake: none Social: Social History: No alcohol and No tobacco Exam: Pre-Anes Outpt Exam: alert, oriented x 3, clear to auscultation bilaterally and regular rate & rhythm Airway: Cervical ROM: WNL (limited extension and L rotation, post surgery) MP: 4 Additional comments: Poor dentition, multiple broken and loose disco lored CV/HEM: Comments: hx endocarditis Metabolic: Metabolic: DM and Morbid obesity Musc/skel: Comments: Diffuse msk pain across midsection after his neck surgery in february with dr singh last year, no feeling infeet Neuropsych: Neuropsych: Seizure (last one three years ago) PFSH Anesthesia PFSH: Medical History BPH loc w urin obs/LUTS Calcium urolithiasis Cervical disc disorder with myelopathy of mid-cervical region Colon polyps History of urethral stricture Urinary tract infection, site not specified Urolithiasis Surgical History History of amputation of toe History of cholecystectomy Status post cervical spinal fusion 07/25/2019 Dr. Mele Singh C5-C6 ACDFF Status post colonoscopy Status post laser lithotripsy of ureteral calculus Status post esdras-rectal abscess repair, follow-up exam Family History Father , 34-[place] CAD (coronary artery disease) Family/Other Chronic kidney disease (CKD) Social History Smoking and tobacco status: never smoked Alcohol intake: never Household members: family Marital status: Single Current occupational status: disabled History of recent travel: No Data Anesthesia Cardiac Studies: No Data to Display
[2020-06-12 08:34] VITALS: BP 160/83; PULSE 71; RESP 16; TEMP 37.1; O2SAT 94
[2020-06-12] MEDS: sodium chloride 0.9% 1,000 ML 30 ML IV (08:40)
[2020-06-12 08:46] LABS: Glucose Point of Care 168 mg/dL (70-110)
--- NOTE | 2020-06-12 08:52 | W.PM.OPSUD ---
Surgery/Procedure H&P Update DATE OF PROCEDURE: June 12, 2020 DATE H&P PERFORMED: 05/29/20 H&P UPDATE INFORMATION: I have reviewed H&P completed within last 30 days, I have examined patient prior to procedure and No changes to prior documentation PREOP DIAGNOSIS: diagnostic PLANNED PROCEDURE: Operation Date: 06/12/20 09:00 Proposed Procedures p Colonoscopy 99045 K92.1(Not Applicable) - Garrick Morgan MD
--- NOTE | 2020-06-12 09:36 | ANE.PACU2 ---
Inpatient post-anesthesia follow up: Airway intact: Yes Vital signs: Temperature 98.7 F Pulse Rate 71 Respiratory Rate 16 Blood Pressure 160/83 Pulse Oximetry 94 Oxygen Delivery Me thod Room Air Oxygen Flow Rate Fraction of Inspir ed Oxygen Hydration adequate: Yes Nausea and vomiting: No Pain level: 1 Mental status: Baseline
[2020-06-12 09:41] VITALS: BP 121/67; PULSE 75; RESP 18; TEMP 36.3; O2SAT 95
--- NOTE | 2020-06-12 10:41 | PC.NURSE ---
PT'S SISTER CALLED TWICE TO COME TO THE GI DEPARTMENT FOR DISCHARGE INSTRUCTIONS, AND SHE DECLINED BOTH TIMES. STATED SHE WOULD WAIT IN THE CAR. VERBAL AND WRITTEN INSTRUCTIONS GIVEN TO PT REGARDING STRAINING FECES FOR POLYP. ALL SUPPLIES GIVEN TO PT.
--- NOTE | 2020-06-12 14:15 | ANE.PACU2 ---
Inpatient post-anesthesia follow up: Airway intact: Yes Vital signs: Temperature 97.4 F Pulse Rate 75 Respiratory Rate 18 Blood Pressure 121/67 Pulse Oximetry 95 Oxygen Delivery Me thod Room Air Oxygen Flow Rate Fraction of Inspir ed Oxygen Hydration adequate: Yes Nausea and vomiting: No Pain level: 1 Mental status: Baseline
== END 2020-06-12 10:10 | disposition home or self-care (01) ==
PROVIDERS: PCP Physician Assistant; Visit Provider Surgery
PROC: 0DJD8ZZ Inspection of Lower Intestinal Tract, Via Natural or Artificial Opening Endoscopic (ICD-10-PCS; CPT 45378; principal; 2020-06-12 09:00)
DX: K92.1 Melena (principal); N40.1 Benign prostatic hyperplasia with lower urinary tract symptoms; N13.8 Other obstructive and reflux uropathy; Z86.010 Personal history of colon polyps; Z82.49 Family history of ischemic heart disease and other diseases of the circulatory system; E11.9 Type 2 diabetes mellitus without complications; E66.01 Morbid (severe) obesity due to excess calories; Z68.21 Body mass index [BMI] 21.0-21.9, adult; D12.2 Benign neoplasm of ascending colon; D12.5 Benign neoplasm of sigmoid colon; K57.30 Diverticulosis of large intestine without perforation or abscess without bleeding; K64.8 Other hemorrhoids
CPT/HCPCS: 36416; 45380; 45385; 82962; 88305; 96360; J2704; J7030

== ENCOUNTER → 2020-08-21 15:13 | Outpatient (BNVA) | payer MEDICARE, MEDICAID, SELFPAY | PROVIDERS: PCP Physician Assistant; Visit Provider Urology | DX: N20.9 Urinary calculus, unspecified (principal); N40.1 Benign prostatic hyperplasia with lower urinary tract symptoms | CPT/HCPCS: 81003 ==

== ENCOUNTER → 2020-12-17 14:15 | Outpatient (BNVA) | payer MEDICARE, MEDICAID, SELFPAY | PROVIDERS: PCP Physician Assistant; Visit Provider Specialist | DX: G40.109 Localization-related (focal) (partial) symptomatic epilepsy and epileptic syndromes with simple partial seizures, not intractable, without status epilepticus (principal) | CPT/HCPCS: 99213 ==

== ENCOUNTER → 2020-12-18 09:27 | Outpatient (BNVA) | payer MEDICARE, MEDICAID, SELFPAY | PROVIDERS: PCP Physician Assistant; Referring Provider Physician Assistant; Visit Provider Physician Assistant | DX: M48.02 Spinal stenosis, cervical region (principal); Z47.89 Encounter for other orthopedic aftercare; Z98.1 Arthrodesis status | CPT/HCPCS: 72050 ==

== ENCOUNTER 2021-01-07 08:59 | Outpatient (CLI) | payer MEDICARE, MEDICAID, SELFPAY ==
--- NOTE | 2021-01-07 09:30 | MR_ITS ---
WS: [id number] MRI CERVICAL SPINE NONCONTRAST HISTORY: Spondylosis with radiculopathy, facial swelling for one year. COMPARISON: 07/05/2018 Technique: Multiplanar, multisequence noncontrast imaging of the cervical spine. Mild increase in the cervical lordosis. 2 mm retrolisthesis of C3 and C4. Prior anterior cervical fus ion at C5-6 with interbody spacer. Postsurgical changes are new since 07/05/2018. Signal within the cervical cord is normal. Visualized posterior fossa is unremarkable. Craniocervical junction, C1 and C2 relationship, odontoid process and soft tissues are normal. C2-C3: Mild osteophytic ridging. No stenosis. C3-C4: Mild osteophytic ridging with annular disc bulging and a central disc protrusion. Mild encroac hment upon the ventral thecal sac with no high-grade stenosis. C4-C5: Mild encroachment on the ventral thecal sac by retropulsion of the C4 vertebral body, osteophy tic ridging and facet joint arthritis. Mild central and bilateral foraminal stenosis. C5-C6: Diffuse osteophytic ridging. No disc protrusion. Mild facet joint arthritis. Mild central sten osis. C6-C7: Diffuse osteophytic ridging with annular disc bulging. Disc osteophyte complexes extend into t he neural foramina. Moderate bilateral foraminal stenosis, RIGHT greater than LEFT and mild central s tenosis. C7-T1: Mild osteophytic ridging and disc bulging. No stenosis. Paraspinal soft tissue are normal. MR/MR cervical spin wo con* [id number] IMPRESSION: 1. Status post intracervical fusion with interbody spacer at C5-6 which is new since 07/05/2018. Improvement in the central and foraminal stenosis. 2. Mild retrolisthesis of C3 and C4. 3. Moderate bilateral foraminal stenosis at C6-7 due to disc and osteophyte di sease, RIGHT greater than LEFT with mild central stenosis. Stenosis has progres sed since 07/05/2018. 4. Mild central and bilateral foraminal stenosis at C4-5 due to disc and osteo phyte disease. 5. Mild encroachment upon the thecal sac at C3-4.
== END 2021-01-07 09:00 | disposition home or self-care (01) ==
PROVIDERS: PCP Physician Assistant; Visit Provider Physician Assistant
DX: M47.22 Other spondylosis with radiculopathy, cervical region (principal); M48.02 Spinal stenosis, cervical region; M25.78 Osteophyte, vertebrae
CPT/HCPCS: 72141

== ENCOUNTER 2021-08-22 13:51 | Outpatient (CLI) | payer MEDICARE, MEDICAID, SELFPAY ==
--- NOTE | 2021-08-22 08:00 | XR_ITS ---
WS: [id number] KUB, AP view, 08/22/2021 Clinical Data: Urolithiasis Comparison: None. Findings: No abnormal intraabdominal masses are seen. There is no dilatated small bowel or evidence of obstruct ion. There are possibly small calcifications overlying the inferior pole of the left kidney. The right kid kahlil is partly obscured by bowel gas and fecal material. There are phleboliths in the true pelvis. The re are clips in the right upper quadrant from a cholecystectomy. Degenerative arthritic change of the lumbar spine is noted. XR/XR KUB [id number] Impression: Questionable small calcifications overlying inferior pole of the left kidney.
== END 2021-08-22 13:52 | disposition home or self-care (01) ==
PROVIDERS: PCP Physician Assistant; Visit Provider Urology
DX: N20.9 Urinary calculus, unspecified (principal)
CPT/HCPCS: 51798; 74018; 81003; 99213

== ENCOUNTER → 2021-11-05 14:39 | Outpatient (BNVA) | payer MEDICARE, MEDICAID, SELFPAY | PROVIDERS: PCP Physician Assistant; Referring Provider Physician Assistant; Visit Provider Otolaryngology | DX: H91.93 Unspecified hearing loss, bilateral (principal); H93.13 Tinnitus, bilateral; H66.93 Otitis media, unspecified, bilateral | CPT/HCPCS: 99203 ==

== ENCOUNTER → 2021-12-17 14:44 | Outpatient (BNVA) | payer MEDICARE, MEDICAID, SELFPAY | PROVIDERS: PCP Physician Assistant; Visit Provider Specialist | DX: G40.109 Localization-related (focal) (partial) symptomatic epilepsy and epileptic syndromes with simple partial seizures, not intractable, without status epilepticus (principal); H93.13 Tinnitus, bilateral; H91.93 Unspecified hearing loss, bilateral; G43.711 Chronic migraine without aura, intractable, with status migrainosus | CPT/HCPCS: 99214 ==

== ENCOUNTER 2023-08-10 11:02 | Emergency (ER) | payer MEDICARE, MEDICAID, SELFPAY ==
[2023-08-10 11:13] VITALS: BP 120/78; PULSE 78; RESP 16; TEMP 36.4; O2SAT 93; BMI 32.4
[2023-08-10 11:21] VITALS: BP 121/64; PULSE 68; RESP 16; O2SAT 94
--- NOTE | 2023-08-10 11:32 | CTR_ITS ---
PROCEDURE INFORMATION: Exam: CT Abdomen And Pelvis Without Contrast Exam date and time: 08/10/2023 11:49 AM Age: 67 years old Clinical indication: Abdominal pain; Localized; Lower; Additional info: Flank pain TECHNIQUE: Imaging protocol: Computed tomography of the abdomen and pelvis without contrast. Radiation optimization: All CT scans at this facility use at least one of these dose optimization techniques: automated exposure control; mA and/or kV adjustment per patient size (includes targeted exams where dose is matched to clinical indication); or iterative reconstruction. COMPARISON: CT abdomen pelvis wo/w [id number] 08/14/2016 10:41 AM RADIATION DOSE METRICS: Total DLP (mGy-cm): 237 FINDINGS: Liver: Normal. No mass. Gallbladder and biliary ducts: There has been a cholecystectomy. Pancreas: Normal. No ductal dilation. Spleen: Normal. No splenomegaly. Adrenal glands: Normal. No mass. Kidneys and ureters: There is punctate calcification in the superior right kidney and inferior left kidney. No hydronephrosis. There are bilateral renal cysts. This includes a 1.7 cm cyst in the superior left kidney and a 2.8 x 1.7 cm cyst off the posterior mid left kidney. Stomach and bowel: Colonic diverticula are present although there are no CT findings to suggest diverticulitis. No bowel obstruction. Appendix: The appendix is visualized and appears normal. Intraperitoneal space: Unremarkable. No free air. No significant fluid collection. Vasculature: There is vascular atherosclerotic calcification. Lymph nodes: Unremarkable. No enlarged lymph nodes. Urinary bladder: Unremarkable as visualized. Reproductive: Unremarkable as visualized. Bones/joints: Degenerative change is identified in the spine. There is no evidence for acute fracture or malalignment. Soft tissues: Unremarkable. CT/CT abdomen pelvis wo con [id number] IMPRESSION: There are no acute concerning abnormalities. COMMENTS: Consistent with the [employer]'s Incidental Findings Committee white paper (J Am Jose Radiol 2018): Any incidental renal lesion less than 1 cm or classified as too small to characterize, or any incidental cystic renal lesion characterized as simple-appearing, is likely benign. No follow-up imaging is recommended for these lesions per consensus recommendations based on imaging criteria.
--- NOTE | 2023-08-10 11:33 | CTR_ITS ---
PROCEDURE INFORMATION: Exam: CT Head Without Contrast Exam date and time: 08/10/2023 11:47 AM Age: 67 years old Clinical indication: Head Injury or trauma; Fall; Blunt trauma (contusions or hematomas); Without loss of consciousness; Additional info: Fall, head injury TECHNIQUE: Imaging protocol: Computed tomography of the head without contrast. Radiation optimization: All CT scans at this facility use at least one of these dose optimization techniques: automated exposure control; mA and/or kV adjustment per patient size (includes targeted exams where dose is matched to clinical indication); or iterative reconstruction. COMPARISON: CT head wo con* [id number] 06/09/2019 1:50 PM RADIATION DOSE METRICS: Total DLP (mGy-cm): 296 FINDINGS: Brain: mild generalized atrophy with associated prominence of sulci. No acute intracranial hemorrhage or abnormal intracranial mass effect is identified. There are no subdural collections. Cerebral ventricles: The ventricles are stable size and position compared to 06/09/2019. Paranasal sinuses: Small mucous retention cyst inferiorly in the right maxillary sinus. Mastoid air cells: Visualized portions of mastoid sinuses are not opacified. Bones: Unremarkable. No acute fracture. Soft tissues: Other than as stated above, no obvious acute abnormality. CT/CT head wo con* [id number] IMPRESSION: No acute intracranial hemorrhage or mass effect.
[2023-08-10 11:51] LABS: Hematocrit 47.4 % (37-53); Mean Corpuscular HGB Conc 36.3 g/dL (30-55); Mean Corpuscular Hemoglobin 30.4 pg (27-33); Mean Corpuscular Volume 83.9 fl (82-101); Mean Platelet Volume 9.9 fL (7.4-10.4); Platelet Count 147 10^3/cmm (157-399); Red Blood Count 5.65 10^6/uL (3.85-5.65); White Blood Count 6.84 10^3/uL (3.29-11.43)
[2023-08-10 12:14] LABS: Alanine Aminotransferase 117 U/L (0-41); Albumin Level 3.3 g/dL (3.5-5.2); Alkaline Phosphatase 98 U/L (40-130); Anion Gap 17.1 (5-19); Aspartate Amino Transferase 141 U/L (0-40); Blood Urea Nitrogen 13 mg/dL (8-23); Calcium 8.6 mg/dL (8.5-10.5); Carbon Dioxide 20 mmol/L (22-29); Chloride 96 mmol/L (98-107); Creatinine Clr Calc Pharmacy 100.5438; Globulin 4.3 g/dL (1.3-4.6); Glucose 182 mg/dL (65-115); Osmolality Calculated 275 mOsm/kg (285-295); Potassium 3.1 mmol/L (3.5-5.1); Sodium 130 mmol/L (136-145); Total Bilirubin 0.8 mg/dL (0.15-1.2); Total Protein 7.6 g/dL (6.6-8.7)
[2023-08-10 12:22] VITALS: BP 106/66; BP 114/67; BP 126/74; PULSE 73; PULSE 77; PULSE 81
--- NOTE | 2023-08-10 12:22 | ECG_ITS ---
[facility] Test Date: 2023-08-10 Pat Name: Jono Monaco Department: Room: Gender: Male Dock Operator: : [id number] Requested By: Carline Messina Order Number: [id number] Tigre MD: Adilson Ceja M.D. Measurements Intervals [place] Rate: 72 P: 25 WI: 163 QRS: -1 QRSD: 109 T: 30 QT: 332 QTc: 365 Interpretive Statements SINUS RHYTHM WITH FREQUENT SUPRAVENTRICULAR PREMATURE COMPLEXES IN A BIGEMINAL PATTERN MINIMAL VOLTAGE CRITERIA FOR LVH, CONSIDER NORMAL VARIANT [MEETS CRITERIA IN ONE OF: R(aVL), S(V1), R(V5), R(V5/V6)+S(V1)] NONSPECIFIC T-WAVE ABNORMALITY ABNORMAL RHYTHM ECG Compared to ECG 02/23/2018 23:07:10 T-wave abnormality now present Electronically Signed On 08-10-2023 14:48:38 CDT by Adilson Ceja M.D. [email or web address]
--- NOTE | 2023-08-10 12:22 | ED_ITS ---
HPI - Male Genitourinary 2 General: Chief complaint: Urogenital-Male Stated complaint: frequent urination Time Seen by Provider: 08/10/23 11:29 History of Present Illness: 67-year-old man who presents emergency r oom with several complaints. He says this all started when he fell on some sort of fountain while he was mowing. He had an injury to his right flank area. Said has been having some pain there. He also hit his head and has been having some headaches since then. No loss of consciousness. No altered mental status. His main complaint today initially is that he is having trouble urinating. Says it clement when he urinates. He had decreased output he says. Review of Systems 2 Narrative: Constitutional symptoms: Negative except as documented in HPI. Skin symptoms: Negative except as documented in HPI. Eye symptoms: Negative except as documented in HPI. ENMT symptoms: Negative except as documented in HPI. Respiratory symptoms: Negative except as documented in HPI. Cardiovascular symptoms: Negative except as documented in HPI. Gastrointestinal symptoms: Negative except as documented in HPI. Genitourinary symptoms: Negative except as documented in HPI. Musculoskeletal symptoms: Negative except as documented in HPI. Neurologic symptoms: Negative except as documented in HPI. Psychiatric symptoms: Negative except as documented in HPI. Endocrine symptoms: Negative except as documented in HPI. PFSH ED 2 PFSH: Medical History BPH loc w urin obs/LUTS Calcium urolithiasis Cervical disc disorder with myelopathy of mid-cervical region Colon polyps History of urethral stricture Urinary tract infection, site not specified Urolithiasis Surgical History History of amputation of toe History of cholecystectomy Status post cervical spinal fusion 07/25/2019 Dr. Mele Hu C5-C6 ACDFF Status post colonoscopy with polypectomy (06/12/20) Status post laser lithotripsy of ureteral calculus Family History Father , 34-[place] CAD (coronary artery disease) Family/Other Chronic kidney disease (CKD) Social History Smoking and tobacco/nicotine status: never used tobacco/nicotine Alcohol intake: never Substance/Drug Use: never Household members: family Marital status: Single Current occupational status: disabled Physical Exam 2 Narrative: EXAM NARRATIVE: General: Alert, no acute distress. Skin: Warm, dry. Head: Normocephalic, atraumatic. Neck: Supple, trachea midline. Eye: Extraocular movements are intact. Ears, nose, mouth and throat: mucosa moist. Cardiovascular: Regular, Normal peripheral perfusion. Respiratory: Lungs are clear to auscultation, respirations are non-labored, breath sounds are equal, Symmetrical chest wall expansion. Gastrointestinal: Soft, Nontender, Non distended, Normal bowel sounds. Musculoskeletal: Normal ROM, no deformity. Neurological: Alert and oriented, No focal neurological deficit observed. Psychiatric: Cooperative, appropriate mood & affect. Course 2 Vital Signs: Vital signs: Vital Signs Temperature 97.6 F 08/10/23 11:13 Pulse Rate 75 08/10/23 14:30 Respiratory Rate 16 08/10/23 14:30 Blood Pressure 132/57 08/10/23 14:30 Pulse Oximetry 97 08/10/23 14:30 Oxygen Delivery Me thod Room Air 08/10/23 14:30 MDM - Male Medical Decision Making Medical decision making: Differential diagnosis including but not limited to and based on the above HPI, review of systems and physical exam: Patient has several complaints. He is complaining of dysuria. But also complaining of flank pain related to trauma. Also complaining of head pain related to trauma. CT of the head and a CT of the abdomen were ordered. To evaluate for his trauma. Basic lab work and urinalysis to evaluate for his dysuria symptoms. Orders placed to evaluate differential diagnosis based on the above differential, HPI and physical exam EKG: Time 1226. Rate 72. Normal sinus rhythm, No ST-T changes, ectopy is present, normal LA & QRS intervals, This was reviewed and interpreted by myself the ER physician at 1230. Lab Review: Laboratory results were reviewed and interpreted by myself the emergency room physician. Lab work is unremarkable other than urinary tract infection. CT head: No acute intracranial process. no intracranial hemorrhage, no evidence of infarct. no evidence of acute fracture.This was reviewed and interpreted by myself the ER physician. CT of the abdomen pelvis: No acute process. This was reviewed and interpreted by myself the emergency room physician. I also reviewed the radiology report. I reviewed the patient's medical record. Reexamination: Patient remained stable. No increased work of breathing. No altered mental status. No focal motor deficits. Assessment and plan: Urinary tract infection Dehydration -IV Rocephin and IV normal saline bolus in the emergency room - Discharged home - Discussed findings and plan with patient. Answered any questions. - All laboratory values were reviewed and interpreted personally by myself, the ER physician - All imaging was reviewed and interpreted personally by myself, the ER physician. - Evaluation and treatment of this problem were appropriate in the emergency setting Lab Data 08/10/23 11:44 08/10/23 11:44 Radiology Impressions Abdomen/Pelvis CT 08/10/23 11:32 IMPRESSION: There are no acute concerning abnormalities. COMMENTS: Consistent with the [employer]'s Incidental Findings Committee white paper (J Am Jose Radiol 2018): Any incidental renal lesion less than 1 cm or classified as too small to characterize, or any incidental cystic renal lesion characterized as simple-appearing, is likely benign. No follow-up imaging is recommended for these lesions per consensus recommendations based on imaging criteria. Head CT 08/10/23 11:33 IMPRESSION: No acute intracranial hemorrhage or mass effect. Laboratory Results WBC 6.84 10^3/uL (3.29-11.43) 08/10/23 11:44 RBC 5.65 10^6/uL (3.85-5.65) 08/10/23 11:44 Hgb 17.20 g/dL (11.27-16.99) H 08/10/23 11:44 Hct 47.4 % (37-53) 08/10/23 11:44 MCV 83.9 fl (82-101) 08/10/23 11:44 MCH 30.4 pg (27-33) 08/10/23 11:44 MCHC 36.3 g/dL (30-55) 08/10/23 11:44 RDW 13.0 % (12.1-15.1) 08/10/23 11:44 Plt Count 147 10^3/cmm (157-399) L 08/10/23 11:44 MPV 9.9 fL (7.4-10.4) 08/10/23 11:44 Lymph % (Auto) Not Reportable 08/10/23 11:44 [place] % (Auto) Not Reportable 08/10/23 11:44 Lymph # (Auto) Not Reportable 08/10/23 11:44 [place] # (Auto) Not Reportable 08/10/23 11:44 Total Counted 100 (0-100) 08/10/23 11:44 Atypical Lymphs % 2.0 % (0-5) 08/10/23 11:44 Absolute Neutrophils 3.6 10^3/cmm (1.4-6.5) 08/10/23 11:44 Segmented Neutrophils 34 % 08/10/23 11:44 Abs Segm Neuts (Man) 2.3 10/cmm (1.6-7.1) 08/10/23 11:44 Band Neutrophils 19.0 % 08/10/23 11:44 Abs Band Neuts (Man) 1.3 10^3/cmm (0.0-1.2) H 08/10/23 11:44 Absolute Lymphocytes 2.1 10^3/cmm (1.2-3.4) 08/10/23 11:44 Lymphocytes (Manual) 28 % 08/10/23 11:44 Monocytes (Manual) 16.0 % 08/10/23 11:44 Absolute Monocytes 1.1 10^3/cmm (0.1-0.6) H 08/10/23 11:44 Eosinophils (Manual) 0 % 08/10/23 11:44 Absolute Eosinophils 0.0 10^3/cmm (0.0-0.7) 08/10/23 11:44 Basophils (Manual) 0.0 % 08/10/23 11:44 Absolute Basophils 0.0 10^3/cmm (0.0-0.2) 08/10/23 11:44 Metamyelocytes 1.0 % 08/10/23 11:44 Platelet Estimate Normal (Normal) 08/10/23 11:44 Sodium 130 mmol/L (136-145) L 08/10/23 11:44 Potassium 3.1 mmol/L (3.5-5.1) L 08/10/23 11:44 Chloride 96 mmol/L (98-107) L 08/10/23 11:44 Carbon Dioxide 20 mmol/L (22-29) L 08/10/23 11:44 Anion Gap 17.1 (5-19) 08/10/23 11:44 BUN 13 mg/dL (8-23) 08/10/23 11:44 Creatinine 0.8 mg/dL (0.7-1.2) 08/10/23 11:44 GFR Calculation 97.0 mL/min (90-130) 08/10/23 11:44 Glucose 182 mg/dL (65-115) H 08/10/23 11:44 Calculated Osmolality 275 mOsm/kg (285-295) L 08/10/23 11:44 Calcium 8.6 mg/dL (8.5-10.5) 08/10/23 11:44 Total Bilirubin 0.8 mg/dL (0.15-1.2) 08/10/23 11:44 AST 141 U/L (0-40) H 08/10/23 11:44 ALT 117 U/L (0-41) H 08/10/23 11:44 Alkaline Phosphatase 98 U/L (40-130) 08/10/23 11:44 Total Protein 7.6 g/dL (6.6-8.7) 08/10/23 11:44 Albumin 3.3 g/dL (3.5-5.2) L 08/10/23 11:44 Globulin 4.3 g/dL (1.3-4.6) 08/10/23 11:44 Urine Color Yellow (Yellow) 08/10/23 12:42 Urine Appearance Clear (CLEAR) 08/10/23 12:42 Urine pH 6 (5-7) 08/10/23 12:42 Ur Specific [place] 1.010 (1.005-1.030) 08/10/23 12:42 Urine Protein 1+ (Negative) H 08/10/23 12:42 Urine Glucose (UA) 4+ (Normal) H 08/10/23 12:42 Urine Ketones Negative (Negative) 08/10/23 12:42 Urine Blood 2+ (Negative) H 08/10/23 12:42 Urine Nitrate Negative (Negative) 08/10/23 12:42 Urine Bilirubin Neg (Negative) 08/10/23 12:42 Urine Urobilinogen Norm mg/dL (Negative) 08/10/23 12:42 Ur Leukocyte Esterase Trace (Negative) H 08/10/23 12:42 Urine RBC 5-10 /hpf (0-2) H 08/10/23 12:42 Urine WBC 15-25 /hpf (0-5) H 08/10/23 12:42 Ur Squamous Epith Cells 0-4 /hpf (0-5) H 08/10/23 12:42 Amorphous Sediment Not Reportable 08/10/23 12:42 Urine Bacteria 3+ /hpf (NONE) H 08/10/23 12:42 All radiology interpretation(s) finalized by discharge Discharge Plan Discharge Patient Disposition: Home Clinical Impression: Urinary tract infection Qualifiers: Urinary tract infection type: acute cystitis Hematuria presence: without hematuria Qualified Code(s): N30.00 - Acute cystitis without hematuria Condition: Stable Prescriptions: New cephalexin 500 mg capsule 500 mg PO BID 5 Days Qty: 10 0RF No Action All Day Allergy (cetirizine) 10 mg capsule 10 mg PO DAILY PRN (Reason: ALLERGIES) gabapentin 100 mg capsule 100 mg PO TID cholecalciferol (vitamin D3) 125 mcg (5,000 unit) capsule 125 mcg PO DAILY metformin 1,000 mg tablet 1,000 mg PO BID vitamin B complex Tablet 1 tab PO DAILY citalopram 20 mg tablet 20 mg PO DAILY alfuzosin 10 mg tablet extended release 24 hr 10 mg PO DAILY levetiracetam 750 mg tablet extended release 24 hr 1,500 mg PO DAILY atorvastatin 40 mg tablet 40 mg PO DAILY glipizide 5 mg tablet 2.5 mg PO DAILY Farxiga 10 mg tablet 10 mg PO DAILY Discharge Orders: Discharge ED (Routine); Ordered 08/10/23 Ordered By: Carline Blanc Referrals: Erendira Delong PA [Primary Care Provider] - Discharge Diet: Usual diet Discharge Activity: Increase activity as tolerated Patient Instructions: Urinary Tract Infection in Men (ED) Activity Restrictions/Additional Instructions: Thank you for choosing [facility] for your healthcare needs today. Please realize this is an emergency room and that we are providing you with a medical screening exam and this may not be complete and all inclusive of all the testing and or work up that you may need to determine your ailment or severity of your illness. You have been screened and evaluated and felt safe for discharge. Health conditions do change or evolve sometimes and as such it is important that you follow up with your Primary Doctor to be re checked, 3-5 days is a general good time frame for follow up. You are always welcome to return to the ED for re assessment if your symptoms are worsening or you have new concerns Coding Level of Care Code ED D[place] for Ebony [place]
[2023-08-10 12:23] VITALS: BP 121/64; PULSE 72; RESP 14; O2SAT 94
[2023-08-10 12:30] VITALS: BP 114/67; PULSE 81; RESP 17; O2SAT 93
[2023-08-10 12:33] LABS: Slide Review Slide Review Perform
[2023-08-10 12:36] LABS: Absolute Neutrophil 3.6 10^3/cmm (1.4-6.5); Absolute Segmented Neutrophil 2.3 10/cmm (1.6-7.1); Band Neutrophils Absolute 1.3 10^3/cmm (0.0-1.2); Lymphocytes 28 %; Lymphocytes Absolute 2.1 10^3/cmm (1.2-3.4); Monocytes Absolute 1.1 10^3/cmm (0.1-0.6); Platelet Estimate Normal (Normal); Segmented Neutrophils 34 %; Total Cells Counted 100 (0-100)
[2023-08-10 12:37] LABS: Eosinophils 0 %
[2023-08-10 13:06] LABS: Add Urine Microscopic? YES; Bilirubin Urine Neg (Negative); Blood Urine 2+ (Negative); Glucose Urine UA 4+ (Normal); Ketones Urine Negative (Negative); Leukocyte Esterase Urine Trace (Negative); Nitrate Urine Negative (Negative); Protein Urine 1+ (Negative); Urine Appearance Clear (CLEAR); Urine Color Yellow (Yellow); Urobilinogen Urine Norm (Negative); pH Urine 6 (5-7)
[2023-08-10 13:09] LABS: Add Urine Culture? Yes; Bacteria Urine 3+ /hpf; Squamous Epithelial Cell Urine 0-4 /hpf (0-5); WBC Urine 15-25 /hpf (0-5)
[2023-08-10] MEDS: sodium chloride 0.9% 1,000 ML 999 ML IV (13:25)
[2023-08-10] MEDS: cefTRIAXone 1,000 MG in sodium chloride 0.9% (plus) 50 ML 100 MG IV (13:32)
[2023-08-10 14:30] VITALS: BP 132/57; PULSE 75; RESP 16; O2SAT 97
== END 2023-08-10 14:55 | disposition home or self-care (01) ==
PROVIDERS: Emergency Medicine; Emergency Provider Emergency Medicine; PCP Physician Assistant
DX: N30.00 Acute cystitis without hematuria (principal); Z79.84 Long term (current) use of oral hypoglycemic drugs; Z87.440 Personal history of urinary (tract) infections
CPT/HCPCS: 36415; 51798; 70450; 74176; 80053; 81001; 85007; 85025; 87077; 87086; 87186; 93005; 96365; 99285; J0696; J7030

== ENCOUNTER 2023-08-19 14:55 | Emergency (ER) | payer MEDICARE, MEDICAID, SELFPAY ==
[2023-08-19 15:04] VITALS: BP 144/76; PULSE 66; TEMP 36.9; O2SAT 98; BMI 33.9
--- NOTE | 2023-08-19 15:11 | W.ED.MALEGU ---
HPI - Male Genitourinary General: Chief complaint: Urogenital-Male Stated complaint: Can not urinate Time Seen by Provider: 08/19/23 15:10 History of Present Illness: 67-year-old male patient comes in today with difficulty urinating. Patient reports symptoms for the last 2 to 3 days with increasing difficulty urinating. Patient was seen on 09 August and started on antibiotics for a urinary tract infection. I reviewed the record and noted patient got 1 g of Rocephin in the ER and was released to home with cephalexin. I reviewed the record and noted that the Enterococcus species that was resistant to Augmentin, cefuroxime and penicillins and intermittent coverage with Macrobid was noted on the culture. 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 Mele Hu C5-C6 ACDFF Status post colonoscopy with polypectomy (06/12/20) Status post laser lithotripsy of ureteral calculus Family History Father , 34-[place] CAD (coronary artery disease) Family/Other Chronic kidney disease (CKD) Social History Smoking and tobacco/nicotine status: never used tobacco/nicotine Alcohol intake: never Substance/Drug Use: never Household members: family Marital status: Single Current occupational status: disabled Physical Exam Const: COMMON NORMALS: alert HENMT: COMMON NORMALS: normocephalic HEAD & SCALP: normocephalic Neck/C-Spine: COMMON NORMALS: full ROM Resp: COMMON NORMALS: normal respiratory effort and clear to auscultation bilaterally AUSCULTATION: clear to auscultation bilaterally Cardio: COMMON NORMALS: regular rate RATE: regular rate GI: COMMON NORMALS: Soft to palpation PALPATION: Yes Soft to palpation : BLADDER/KIDNEY EXAM: Yes CVA tenderness on the right Back/Pelvis: GENERAL BACK: Yes CVA tenderness Extremity: COMMON NORMALS: normal to inspection Neuro: SENSORIUM/ORIENTATION: Yes alert Skin: COMMON NORMALS: turgor normal GENERAL SKIN EXAM: turgor normal Course Vital Signs: Vital signs: Vital Signs Temperature 98.4 F 08/19/23 15:04 Pulse Rate 66 08/19/23 15:04 Blood Pressure 144/76 08/19/23 15:04 Pulse Oximetry 98 08/19/23 15:04 Oxygen Delivery Me thod Room Air 08/19/23 15:04 MDM - Male Medical Decision Making Patient comes in today for complaints of right flank pain and difficulty urinating. Patient appears nontoxic. Patient appears no acute distress. Patient has completed some antibiotics, cephalexin, for urinary infection that was diagnosed on 09 August. Patient appears nontoxic. Patient appears in mild pain/discomfort. Abdomen is soft with some suprapubic tenderness. Patient also has some mild right CVA tenderness. Differential diagnosis pyelonephritis, urinary tract infection, acute urinary retention. 1530, bladder scan noted 190 mL of urine. Did not recommend Weathers catheterization but may straight cath for urine collection. Patient was able to urinate 80 mL without difficulty. 1605, CBC and CMP were unremarkable. Urinalysis showed large amount of white blood cells. I reviewed culture results but noted the Enterococcus species that coverage with Levaquin was strong. We will go ahead and prescribe Levaquin 750 daily for 7 days. Recommended follow-up with primary care in 1 week for recheck. Return to ED for worsening symptoms. Patient and spouse both reported understanding. Lab Data 08/19/23 15:24 08/19/23 15:24 Laboratory Results WBC 7.96 10^3/uL (3.29-11.43) 08/19/23 15:24 RBC 5.15 10^6/uL (3.85-5.65) 08/19/23 15:24 Hgb 15.80 g/dL (11.27-16.99) 08/19/23 15:24 Hct 46.4 % (37-53) 08/19/23 15:24 MCV 90.1 fl (82-101) 08/19/23 15:24 MCH 30.7 pg (27-33) 08/19/23 15:24 MCHC 34.1 g/dL (30-55) 08/19/23 15:24 RDW 13.8 % (12.1-15.1) 08/19/23 15:24 Plt Count 322 10^3/cmm (157-399) 08/19/23 15:24 MPV 8.9 fL (7.4-10.4) 08/19/23 15:24 Neut % (Auto) 58.0 % 08/19/23 15:24 Lymph % (Auto) 29.6 % 08/19/23 15:24 Moca % (Auto) 10.2 % 08/19/23 15:24 Eos % (Auto) 1.3 % 08/19/23 15: Baso % (Auto) 0.6 % 08/19/23 15:24 Neut # (Auto) 4.62 10^3/uL (1.8-7.7) 08/19/23 15: Lymph # (Auto) 2.4 10^3/uL (0.8-4.8) 08/19/23 15:24 Moca # (Auto) 0.8 10^3/uL (0.2-0.9) 08/19/23 15:24 Eos # (Auto) 0.1 10^3/uL (0.0-0.8) 08/19/23 15:24 Baso # (Auto) 0.1 10^3/uL (0.0-0.1) 08/19/23 15: Nucleated RBC % (auto) 0 % 08/19/23 15: Nucleated RBCs # 0.0 /100WBC 08/19/23 15:24 Sodium 141 mmol/L (136-145) 08/19/23 15:24 Potassium 4.7 mmol/L (3.5-5.1) 08/19/23 15:24 Chloride 104 mmol/L (98-107) 08/19/23 15:24 Carbon Dioxide 24 mmol/L (22-29) 08/19/23 15:24 Anion Gap 17.7 (5-19) 08/19/23 15:24 BUN 12 mg/dL (8-23) 08/19/23 15:24 Creatinine 0.8 mg/dL (0.7-1.2) 08/19/23 15:24 GFR Calculation 97.0 mL/min (90-130) 08/19/23 15:24 Glucose 130 mg/dL (65-115) H 08/19/23 15:24 Calculated Osmolality 294 mOsm/kg (285-295) 08/19/23 15:24 Calcium 9.2 mg/dL (8.5-10.5) 08/19/23 15:24 Total Bilirubin 0.8 mg/dL (0.15-1.2) 08/19/23 15:24 AST 30 U/L (0-40) 08/19/23 15:24 ALT 27 U/L (0-41) 08/19/23 15:24 Alkaline Phosphatase 115 U/L (40-130) 08/19/23 15:24 Total Protein 8.8 g/dL (6.6-8.7) H 08/19/23 15:24 Albumin 3.7 g/dL (3.5-5.2) 08/19/23 15:24 Globulin 5.1 g/dL (1.3-4.6) H 08/19/23 15:24 Urine Color Yellow (Yellow) 08/19/23 15:35 Urine Appearance Slightly cloudy (CLEAR) 08/19/23 15:35 Urine pH 5 (5-7) 08/19/23 15:35 Ur Specific [place] 1.020 (1.005-1.030) 08/19/23 15:35 Urine Protein Trace (Negative) 08/19/23 15:35 Urine Glucose (UA) 4+ (Normal) H 08/19/23 15:35 Urine Ketones Negative (Negative) 08/19/23 15:35 Urine Blood 2+ (Negative) H 08/19/23 15:35 Urine Nitrate Negative (Negative) 08/19/23 15:35 Urine Bilirubin Neg (Negative) 08/19/23 15:35 Urine Urobilinogen Norm mg/dL (Negative) 08/19/23 15:35 Ur Leukocyte Esterase 2+ (Negative) H 08/19/23 15:35 Urine RBC 10-15 /hpf (0-2) H 08/19/23 15:35 Urine WBC >100 /hpf (0-5) H 08/19/23 15:35 Ur Squamous Epith Cells 0-4 /hpf (0-5) H 08/19/23 15:35 Amorphous Sediment Not Reportable 08/19/23 15:35 Urine Bacteria 2+ /hpf (NONE) H 08/19/23 15:35 Urine Mucus 1+ /hpf 08/19/23 15:35 No radiology studies performed this visit Discharge Plan Discharge Patient Disposition: Home Clinical Impression: Urinary tract infection Qualifiers: Urinary tract infection type: site unspecified Hematuria presence: without hematuria Qualified Code(s): N39.0 - Urinary tract infection, site not specified Condition: Stable Prescriptions: New levofloxacin 750 mg tablet 750 mg PO DAILY 6 Days Qty: 6 0RF No Action All Day Allergy (cetirizine) 10 mg capsule 10 mg PO DAILY PRN (Reason: ALLERGIES) gabapentin 100 mg capsule 100 mg PO TID cholecalciferol (vitamin D3) 125 mcg (5,000 unit) capsule 125 mcg PO DAILY metformin 1,000 mg tablet 1,000 mg PO BID vitamin B complex Tablet 1 tab PO DAILY citalopram 20 mg tablet 20 mg PO DAILY alfuzosin 10 mg tablet extended release 24 hr 10 mg PO DAILY levetiracetam 750 mg tablet extended release 24 hr 1,500 mg PO DAILY atorvastatin 40 mg tablet 40 mg PO DAILY glipizide 5 mg tablet 2.5 mg PO DAILY Farxiga 10 mg tablet 10 mg PO DAILY Discharge Orders: Discharge ED (Routine); Ordered 08/19/23 Ordered By: Mark Lott Referrals: Erendira Delong PA [Primary Care Provider] - Discharge Diet: Usual diet Discharge Activity: Increase activity as tolerated Patient Instructions: Urinary Tract Infection in Men (ED) Activity Restrictions/Additional Instructions: Take antibiotic as directed. Drink plenty of fluids. Follow-up with primary care in 1 week for recheck. Return to ED for worsening symptoms such as high fever greater than 100.4, inability to hold fluids down, or new concerns. Coding Level of Care Code ED Filler Shredding Machine Loader for Ebony Greenwood
[2023-08-19 15:32] LABS: Basophils # 0.1 10^3/uL (0.0-0.1); Basophils % 0.6 %; Eosinophils # 0.1 10^3/uL (0.0-0.8); Eosinophils % 1.3 %; Hematocrit 46.4 % (37-53); Lymphocytes # 2.4 10^3/uL (0.8-4.8); Lymphocytes % 29.6 %; Mean Corpuscular HGB Conc 34.1 g/dL (30-55); Mean Corpuscular Hemoglobin 30.7 pg (27-33); Mean Corpuscular Volume 90.1 fl (82-101); Mean Platelet Volume 8.9 fL (7.4-10.4); Monocytes # 0.8 10^3/uL (0.2-0.9); Monocytes % 10.2 %; Neutrophils # 4.62 10^3/uL (1.8-7.7); Nucleated Red Blood Cells % 0 %; Platelet Count 322 10^3/cmm (157-399); Red Blood Count 5.15 10^6/uL (3.85-5.65); Red Cell Distribution Width 13.8 % (12.1-15.1); White Blood Count 7.96 10^3/uL (3.29-11.43)
--- NOTE | 2023-08-19 15:40 | PC.NURSE ---
Pt urinated 80cc, provider aware, will hold straight cath for now
[2023-08-19 15:48] LABS: Alanine Aminotransferase 27 U/L (0-41); Albumin Level 3.7 g/dL (3.5-5.2); Alkaline Phosphatase 115 U/L (40-130); Anion Gap 17.7 (5-19); Aspartate Amino Transferase 30 U/L (0-40); Blood Urea Nitrogen 12 mg/dL (8-23); Calcium 9.2 mg/dL (8.5-10.5); Carbon Dioxide 24 mmol/L (22-29); Chloride 104 mmol/L (98-107); Creatinine Clr Calc Pharmacy 99.4552; Globulin 5.1 g/dL (1.3-4.6); Glucose 130 mg/dL (65-115); Osmolality Calculated 294 mOsm/kg (285-295); Potassium 4.7 mmol/L (3.5-5.1); Sodium 141 mmol/L (136-145); Total Bilirubin 0.8 mg/dL (0.15-1.2); Total Protein 8.8 g/dL (6.6-8.7)
[2023-08-19 15:55] LABS: Add Urine Microscopic? YES; Bilirubin Urine Neg (Negative); Blood Urine 2+ (Negative); Glucose Urine UA 4+ (Normal); Ketones Urine Negative (Negative); Leukocyte Esterase Urine 2+ (Negative); Nitrate Urine Negative (Negative); Protein Urine Trace (Negative); Urine Appearance Slightly Cloudy (CLEAR); Urine Color Yellow (Yellow); Urobilinogen Urine Norm (Negative); pH Urine 5 (5-7)
[2023-08-19 15:57] LABS: Add Urine Culture? Yes; Bacteria Urine 2+ /hpf; Mucus Urine 1+ /hpf; Squamous Epithelial Cell Urine 0-4 /hpf (0-5); WBC Urine >100 /hpf (0-5)
[2023-08-19] MEDS: levoFLOXacin 750 mg Tablet PO (16:15)
[2023-08-19 16:26] VITALS: BP 129/60; PULSE 66; RESP 15; O2SAT 97
== END 2023-08-19 16:27 | disposition home or self-care (01) ==
PROVIDERS: Emergency Provider Nurse Practitioner Family; PCP Physician Assistant
DX: N39.0 Urinary tract infection, site not specified (principal); Z79.84 Long term (current) use of oral hypoglycemic drugs; Z87.440 Personal history of urinary (tract) infections
CPT/HCPCS: 36415; 51798; 80053; 81001; 85025; 87077; 87086; 87186; 99283

== ENCOUNTER → 2023-10-27 12:58 | Outpatient (BNVA) | payer MEDICARE, MEDICAID, SELFPAY | PROVIDERS: PCP Physician Assistant; Referring Provider Physician Assistant; Visit Provider Specialist | DX: G40.109 Localization-related (focal) (partial) symptomatic epilepsy and epileptic syndromes with simple partial seizures, not intractable, without status epilepticus (principal); H93.13 Tinnitus, bilateral; H91.93 Unspecified hearing loss, bilateral; G43.711 Chronic migraine without aura, intractable, with status migrainosus | CPT/HCPCS: 99214 ==